=== PATIENT | male | born 1960 | race Caucasian/White ===

== ENCOUNTER 2017-06-07 08:32 | Inpatient (IN) | payer BC ==
[2017-05-22 08:24] VITALS: BMI 44.0
--- NOTE | 2017-05-22 09:21 | PAT Medication Instructions ---
Service Date May 22, 2017. Current Home Medication List Ascorbic Acid (Vitamin C), 1,000 MG PO HS Aspirin (Aspirin), 325 MG PO HS Azelastine HCl (Azelastine HCl), 1 SPRAY SRAVAN BID Chromium Picolinate (Chromium Picolinate), 200 MCG PO QAM Cinnamon (Cinnamon), 1,000 MG PO BID Fish Oil (Orlando-3), 1 CAP PO HS Fluticasone Propionate (Nasal) (Flonase Allergy Relief), 1 SPRAY SRAVAN BID Garlic (Garlic), 1,000 MG PO HS Ginkgo Biloba (Ginkgo Biloba 230 mg), 1 TAB PO QPM Ginseng (Italian Panax Ginseng), 100 MG PO BID Glucosamine-Vitamin D (Glucosamine Plus Vitamin), 1 TABS PO BID Gymnema Sylvestris Haring (Bulk) (Gymnema Sylvestris Haring), 400 MG PO BID Amherst (Amherst Null), 1 CAP PO BID Hydrochlorothiazide (Hctz), 50 MG PO QAM Insulin Glargine (Lantus), 55 SC AMPM Insulin Human Lispro (Humalog Kwikpen), 15 UNITS SQ breakfast Insulin Human Lispro (Humalog Kwikpen), 13 UNITS SQ lunch Insulin Lispro (Human) (Humalog Kwikpen), 19 UNITS SQ supper Insulin Lispro (Human) (Humalog Kwikpen), 1 DOSE SC HS Losartan Potassium (Cozaar), 100 MG PO QAM Lovastatin (Mevacor), 20 MG PO HS Metformin Hcl (Glucophage), 1,000 MG PO BIDM Milk Thistle (Silybum Marianum (Milk Thistle), 500 MG PO QAM Potassium Citrate (Alkalinizer (Potassium Citrate ER), 2 TAB PO TID Prasterone (Dhea) (Dhea), 50 MG PO QPM Vitamin E (Vitamin E), 1 TAB PO BID [dopa macuna], 1 TAB PO QAM [forskelin], 1 TAB PO BID [shelajit], 1 TAB PO HS Medication Instructions For Your Scheduled Surgery - Hold the following medications 2 weeks prior to surgery: Chromium Picolinate (Chromium Picolinate), 200 MCG PO QAM Cinnamon (Cinnamon), 1,000 MG PO BID Fish Oil (Orlando-3), 1 CAP PO HS Vitamin E (Vitamin E), 1 TAB PO BID [dopa macuna], 1 TAB PO QAM [forskelin], 1 TAB PO BID [shelajit], 1 TAB PO HS Amherst (Amherst Null), 1 CAP PO BID Garlic (Garlic), 1,000 MG PO HS Ginkgo Biloba (Ginkgo Biloba 230 mg), 1 TAB PO QPM Ginseng (Italian Panax Ginseng), 100 MG PO BID Glucosamine-Vitamin D (Glucosamine Plus Vitamin), 1 TABS PO BID Gymnema Sylvestris Haring (Bulk) (Gymnema Sylvestris Haring), 400 MG PO BID Milk Thistle (Silybum Marianum (Milk Thistle), 500 MG PO QAM Prasterone (Dhea) (Dhea), 50 MG PO QPM Aspirin (Aspirin), 325 MG PO HS (per surgeon hold for 10 days) - Hold the following medications 48 hours prior to surgery: Metformin Hcl (Glucophage), 1,000 MG PO BID - Hold the following medications the morning of surgery: Hydrochlorothiazide (Hctz), 50 MG PO QAM Ascorbic Acid (Vitamin C), 1,000 MG PO HS Losartan Potassium (Cozaar), 100 MG PO QAM Potassium Citrate (Alkalinizer (Potassium Citrate ER), 2 TAB PO TID Insulin Human Lispro (Humalog Kwikpen), 15 UNITS SQ breakfast Insulin Human Lispro (Humalog Kwikpen), 13 UNITS SQ lunch - Take the following medications the morning of surgery: Fluticasone Propionate (Nasal) (Flonase Allergy Relief), 1 SPRAY SRAVAN BID (if needed) Azelastine HCl (Azelastine HCl), 1 SPRAY SRAVAN BID (if needed) - Take the following medications as scheduled the night before surgery: Lovastatin (Mevacor), 20 MG PO HS Insulin Glargine (Lantus), 55 SC AMPM Insulin Lispro (Human) (Humalog Kwikpen), 19 UNITS SQ supper Insulin Lispro (Human) (Humalog Kwikpen), 1 DOSE SC HS Potassium Citrate (Alkalinizer (Potassium Citrate ER), 2 TAB PO TID Fluticasone Propionate (Nasal) (Flonase Allergy Relief), 1 SPRAY SRAVAN BID (if needed) Azelastine HCl (Azelastine HCl), 1 SPRAY SRAVAN BID (if needed) - For Insulin Dependent Diabetic patients: Test blood sugar A.M. of surgery. - If BLOOD SUGARS GREATER THAN 150, take half of your regular dose of: Insulin Glargine (Lantus), 55 SC AM - If BLOOD SUGAR LESS THAN 150, do not take any: Insulin Glargine (Lantus) , 55 SC AM NOTHING TO EAT OR DRINK AFTER MIDNIGHT THE NIGHT BEFORE SURGERY If you have any questions please call us at [phone] or [phone] or [phone]
--- NOTE | 2017-05-22 09:50 | DIAGNOSTIC IMAGING REPORT ---
CHEST PREADMISSION(PA/LAT) CLINICAL HISTORY: Preoperative chest COMPARISON STUDY: No previous studies for comparison. FINDINGS: The cardiac and mediastinal contours are normal. There is no evidence of focal pulmonary consolidation. There is no evidence of failure. No pleural effusions are visualized.[ IMPRESSION: No active disease in the chest. Electronically signed by: Julian Nunez M.D. 05/22/2017 9:49 AM Dictated Date/Time: 05/22/2017 9:49 AM
[2017-05-22 10:15] LABS: BASO % 0.4 %; BASO ABS # 0.02 K/uL (0-0.2); COMPLETE YES; EOS % 3.4 %; HEMATOCRIT 40.5 % (42-52); IG% 0.4 %; LYMPH % 27.2 %; LYMPH ABS # 1.54 K/uL (1.2-3.4); MEAN CORPUSCULAR HEMOGLOBIN 31.1 pg (25-34); MEAN CORPUSCULAR HGB CONC 33.8 g/dl (32-36); MEAN PLATELET VOLUME 9.8 fL (7.4-10.4); NEUT % 60.6 %; PLATELET COUNT 193 K/uL (130-400); WHITE BLOOD COUNT 5.66 K/uL (4.8-10.8)
[2017-05-22 10:21] LABS: C-REACTIVE PROTEIN 0.54 mg/dl (0-0.29); CALCIUM 9.1 mg/dl (8.5-10.1); CREATININE 0.81 mg/dl (0.60-1.40); POTASSIUM 3.9 mmol/L (3.5-5.1)
[2017-05-22 10:22] LABS: PROTHROMBIN TIME (PATIENT) 10.7 SECONDS (9.0-12.0)
[2017-05-22 10:23] LABS: ESTIMATED AVERAGE GLUCOSE 192 mg/dl; HA1C FLAG Normal (Normal)
--- NOTE | 2017-06-02 22:47 | HISTORY & PHYSICAL EXAMINATION ---
DATE OF ADMISSION: 06/07/2017 CHIEF COMPLAINT: Left knee pain and discomfort. HISTORY OF PRESENT ILLNESS: The patient is a 56-year-old gentleman, now 8 years out from a right knee replacement who presents for surgical treatment of his left knee. He has got a long history of left knee pain and discomfort as well. He has been through extensive conservative treatment over the years including oral medicines and injections. This has become less successful over time. He has got minimal pain relief from the injections. His knee hurts him all the time. The more he walks, the more it hurts and the more he limps. It does give out on him intermittently. He would like to have his left knee replaced. PAST MEDICAL HISTORY: 1. Hypertension. 2. Elevated cholesterol. 3. Sleep apnea. 4. Diabetes x 8-9 years. 5. Gastroesophageal reflux disease. 6. Obesity with a BMI of 44. 7. Kidney stones. PREVIOUS SURGERIES: Include; 1. Right knee replacement in 03/05/2009. 2. Bilateral knee scopes. ALLERGIES: None. CURRENT MEDICINES: 1. Losartan 100 mg once a day. 2. Insulin. 3. Hydrochlorothiazide 25 mg a day. 4. Metformin 1000 mg twice a day. 5. Potassium 10 mEq three times a day. 6. Losartan 20 mg at bedtime. 7. Astelin nasal spray. 8. Flonase nasal spray. 9. Turmeric capsules. 10. Albuterol inhaler p.r.n. 11. Viagra. 12. Cinnamon. 13. Hungarian ginseng. 14. DHEA 50 mg a day. 15. Fish oil. 16. Chromium picolinate 200 mcg a day. 17. Garlic. 18. Unspecified med 19. Milk thistle. 20. Aspirin 325 once a day. 21. Glucosamine. SOCIAL HISTORY: A 56-year-old male. He is a patient of Dr. Finnegan. He does not smoke. He has 6-10 drinks per week. 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 He has 4 children. FAMILY HISTORY: Significant for heart disease, diabetes and lymphoma. REVIEW OF SYSTEMS: Significant for pretty longstanding diabetes which has not been greatly controlled. He has got multiple muscular aches and pains. No history of DVT or PE. No bleeding problems. PHYSICAL EXAMINATION: GENERAL: Reveals a large, middle-aged male. He looks to be in pretty good health. HEENT: Benign. NECK: Supple. No lymphadenopathy. LUNGS: Clear to auscultation. HEART: Has regular rate and rhythm. ABDOMEN: Soft, nontender and nondistended. EXTREMITIES: Grossly neurovascularly intact except as follows: Examination of the left knee reveals the patient walks with bit of a waddling gait. He has got varus alignment to his knee with a bit of a varus thrust. He has got bony hypertrophy medially. His knee is pretty stiff; about 5 degrees short of full extension to about 95 degrees of flexion. No instability. No pain with hip motion. Examination of the right knee reveals a well-healed incision. No swelling. Range of motion is 0-120. X-RAYS: X-rays of the left knee were reviewed. It shows advanced left knee DJD. He has got near complete loss of his medial joint space. He has subchondral sclerosis. He has got osteophytes off the medial femoral condyle and medial tibial plateau. ASSESSMENT: A 56-year-old gentleman, 8 years out from a right knee replacement with advanced left knee degenerative joint disease. He has failed conservative treatment and would like to have his left knee replaced. PLAN: We will take him to the operating room and do a left total knee replacement. The risks and benefits of this procedure were explained to the patient including but not limited to DVT, PE, , infection, neurological injury, vascular injury, bleeding problems, pain, limited range of motion, stiffness, failure to relieve symptoms, incomplete relief of symptoms, need for further surgery in the future, fracture, leg length inequality, nerve palsy pain and need for revision surgery. The patient understands and desires to proceed. Informed consent was obtained. He does know that at his young age, this might need to be revised. 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 We did talk about stopping his supplements 10 days preop and his metformin 2 days preop. He will bring his CPAP machine to the hospital. He is going to be discharged to home and do a likely outpatient therapy. MAMTA
[~2017-06-07] VITALS: Ht 180.3 cm; Wt 138.5 kg
[2017-06-07] VITALS (8 sets, daily range): BP systolic 143–181; BP diastolic 67–105; PULSE 76–89; TEMP 36.3–37.3; O2SAT 94–99; Ht 180.3 cm; Wt 138.5 kg
[~2017-06-07 08:32] MED LIST: ACETAMINOPHEN 500 MG TAB PO SCH; ASCA500 PO; ASPI325T45 PO; AZEL0.056 NAE; BUPIVACAINE 0.25% 30 ML VIAL ONE; BUPIVACAINE 0.5 % 5 MG/1 ML PF 10ML VIAL ONE; BUPIVACAINE LIPOSOME 266 MG, BUPIVACAINE/EPINEPHRINE INJ 50 ML, SODIUM CHLORIDE 0.9% PF... INFIL SCH; CEFAZOLIN 3000 MG/65 ML D5W 65 ML IV SCH; CHRO1TAB5 PO; CINN1CAP2 PO; FAMOTIDINE 20 MG TAB PO SCH; FLUT0.15 NAE; GABAPENTIN 300 MG CAP PO SCH; GARL10007 PO; GINS1CAP PO; GLUCTAB PO; GYMNPOW PO; HAWT565C PO; HMLIS SQ; HYDR50TA3 PO; INSDGI SC; INSU100I2 SC; INSU100I2 SQ; LACTATED RINGER'S 1000ML 1,000 ML IV SCH; LACTATED RINGER'S 1000ML 500 ML IV ONE; LACTATED RINGER'S 1000ML IV SCH; LOSA1TAB38 PO; LOVA20TA4 PO; METF-384 PO; METOCLOPRAMIDE HCL 10 MG TAB PO SCH; MILK1CAP PO; OMEG10007 PO; POTA1080 PO; PRAS50TA PO; SCOPOLAMINE 1.5 MG TDSY TD SCH; TRANEXAMIC ACID INJ 1,000 MG in SODIUM CHLORIDE 0.9% 100ML 100 ML IV SCH; VITA1TAB4 PO; [UNRECOGNIZED DRUG - CODE] PO; [UNRECOGNIZED DRUG - OTHER] PO; [UNRECOGNIZED DRUG - OTHER] PO; [UNRECOGNIZED DRUG - OTHER] PO
--- NOTE | 2017-06-07 09:00 | History & Physical Bridge Note ---
H&P Re-Evaluation Bridge Note: I have examined the patient, reviewed the History & Physical and in the interval since the performance of the History & Physical I have noted the following changes of clinical significance: No changes noted
[2017-06-07] MEDS ORDERED: ONDANSETRON INJ 2 MG/ML 2 ML VIAL ONE (10:08)
[2017-06-07] MEDS ORDERED: LIDOCAINE HCL 2% 2 ML VIAL (20MG/ML) ONE ×2 (10:08→11:35)
[2017-06-07] MEDS ORDERED: PROPOFOL IV EMULSION 10 MG/ML 20 ML VIAL IV ONE (10:08)
[2017-06-07] MEDS ORDERED: DEXAMETHASONE SOD INJ 4 MG/ML VIAL ONE (10:08)
[2017-06-07] MEDS ORDERED: FENTANYL CITRATE INJ 50 MCG/1 ML 2 ML VIAL ONE (10:09)
[2017-06-07] MEDS ORDERED: MIDAZOLAM HCL 1 MG/ML 2ML VIAL ONE ×3 (10:09→12:22)
[2017-06-07] MEDS ORDERED: BACITRACIN 50000 UNIT VIAL ONE (11:14)
[2017-06-07] MEDS ORDERED: BUPIVACAINE LIPOSOME 1/3% 266 MG/20 ML VIAL INFIL ONE (11:14)
[2017-06-07] MEDS ORDERED: SODIUM CHLORIDE 0.9% PF 50 ML VIAL ONE (11:14)
[2017-06-07] MEDS ORDERED: BUPIVACAINE/EPINEPHRINE 0.25% 1:200,000 30 ML VIAL ONE (11:14)
[2017-06-07] MEDS ORDERED: KETOROLAC TROMETHAMINE 30 MG/ML VIAL IV. PRN (11:30)
[2017-06-07] MEDS ORDERED: PHENYLEPHRINE 100MCG/ML 5ML SYR IV PRN (11:30)
[2017-06-07] MEDS ORDERED: EpHEDrine SULFATE INJ 50 MG/ML AMP IV PRN (11:30)
[2017-06-07] MEDS ORDERED: ATROPINE SULFATE 0.1 MG/ML 5ML SYR IV PRN (11:30)
[2017-06-07] MEDS ORDERED: ONDANSETRON INJ 2 MG/ML 2 ML VIAL IV PRN ×2 (11:30→13:30)
[2017-06-07] MEDS ORDERED: HYDROmorphone INJ 2 MG/ML SYR/VIAL IV PRN (11:30)
[2017-06-07] MEDS ORDERED: KETAMINE HCL INJ 50 MG/ML 10 ML VIAL ONE (12:29)
--- NOTE | 2017-06-07 13:21 | [facility] Post Operative Brief Note ---
Immediate Operative Summary Operative Date Jun 07, 2017. Pre-Operative Diagnosis Left Knee Degenerative Joint Disease Post-Operative Diagnosis Same as preop Procedure(s) Performed Left Total Knee Arthroplasty Surgeon Dr. Estrada Arndt Senior Care Specialist Surgeon(s) Yogesh Champion PA-C Estimated Blood Loss 50 ml Findings Left Knee DJD Fluids (cc crystalloids) 2000 Specimens A. Left Knee Bone and Tissue Drains none Anesthesia Spinal Complication(s) None Disposition Recovery Room / PACU
[2017-06-07] MEDS ORDERED: GLUCOSE 40% GEL 15 GM TUBE PO PRN (13:30)
[2017-06-07] MEDS ORDERED: MoRPHine SULFATE 2 MG/ML CARP IV PRN (13:30)
[2017-06-07] MEDS ORDERED: DiphenhydrAMINE HCL 50 MG/ML VIAL IV PRN (13:30)
[2017-06-07] MEDS ORDERED: BISACODYL 10 MG SUPP PR PRN (13:30)
[2017-06-07] MEDS ORDERED: ALUMINUM/MAGNESIUM/SIMETH (MAALOX MAX) 30 ML UDC PO PRN (13:30)
[2017-06-07] MEDS ORDERED: MAGNESIUM HYDROXIDE SUSP 30 ML UDC PO PRN (13:30)
[2017-06-07] MEDS ORDERED: TAMSULOSIN HCL 0.4 MG CAP PO PRN (13:30)
[2017-06-07] MEDS ORDERED: METOCLOPRAMIDE HCL INJ 5 MG/ML 2 ML VIAL IV PRN (13:30)
[2017-06-07] MEDS ORDERED: GLUCOSE 10 TABS/TUBE PO PRN (13:30)
[2017-06-07] MEDS ORDERED: GLUCAGON FOR INJ 1 MG VIAL SQ PRN (13:30)
[2017-06-07] MEDS ORDERED: DEXTROSE 50% 50 ML SYR IV PRN (13:30)
[2017-06-07] MEDS ORDERED: SILVER SULFADIAZINE 1% CR 50 GM JAR EXT PRN (13:30)
[2017-06-07] MEDS ORDERED: ZOLPIDEM TARTRATE 5 MG TAB PO PRN (13:30)
--- NOTE | 2017-06-07 13:57 | DIAGNOSTIC IMAGING REPORT ---
L KNEE 1 OR 2 VIEWS ROUTINE CLINICAL HISTORY: AP/LATERAL IN PACU LEFT KNEE joint replacement COMPARISON: None. DISCUSSION: Evidence for total left knee arthroplasty. Good contact between prosthetic and underlying bone. Expected surgical change to the soft tissue. IMPRESSION: Anatomic alignment status post total left knee arthroplasty. The above report was generated using voice recognition software. It may contain grammatical, syntax or spelling errors. Electronically signed by: Harjeet Diana M.D. 06/07/2017 1:56 PM Dictated Date/Time: 06/07/2017 1:55 PM
--- NOTE | 2017-06-07 14:43 | Anesthesiology Progress Note ---
Anesthesia Post Op Note Date & Time Jun 07, 2017 at 14:43 Vital Signs Pain Intensity: 0 Vital Signs Past 12 Hours Date Time Temp Pulse Resp B/P (MAP) Pulse Ox O2 Delivery O2 Flow Rate FiO2 06/07/17 14:35 77 16 135/71 99 Nasal Cannula 2 06/07/17 14:25 77 16 134/79 99 Nasal Cannula 2 06/07/17 14:15 36.3 70 16 138/80 99 Nasal Cannula 2 06/07/17 14:05 70 16 122/75 96 Nasal Cannula 2 06/07/17 13:55 70 16 132/74 96 Nasal Cannula 2 06/07/17 13:45 68 16 146/76 96 Nasal Cannula 2 06/07/17 13:35 68 16 152/76 98 Nasal Cannula 2 06/07/17 13:25 36.2 76 16 138/74 96 Nasal Cannula 2 06/07/17 08:55 36.8 81 20 181/105 96 Room Air Notes Mental Status: alert / awake / arousable, participated in evaluation Pt Amnestic to Procedure: Yes Nausea / Vomiting: adequately controlled Pain: adequately controlled Airway Patency, RR, SpO2: stable & adequate BP & HR: stable & adequate Hydration State: stable & adequate Anesthetic Complications: no major complications apparent
[2017-06-07] MEDS ORDERED: PHARMACY GLYCEMIC MGMT CONSULT PRN (15:30)
--- NOTE | 2017-06-07 15:59 | Pharmacy Progress Note ---
Glycemic Control Intl Consult Date of Service Jun 07, 2017. Scope Glycemic Pharmacist consulted by Dr Arndt on 06/07/17 for glycemic control and to write orders per [facility] inpatient glycemic control protocol Objective Weight (Kilograms): 138.5 Accuchecks BSG (last 24hrs): Test 06/07/17 09:04 06/07/17 13:35 Bedside Glucose 207 mg/dl (70-99) 136 mg/dl (70-99) HbA1c Test 05/22/17 09:16 Hemoglobin A1c 8.3 % (4.5-5.6) H Recent Pertinent Medications Outpatient Anti-diabetic Regimen: * Lantus 55 units SQ BID * NovoLog 15, 13, 19 units with breakfast, lunch, dinner respectively Risk Factors for Insulin Resistance: * Steroids: DXM 4mg IV x 1 intraop * Recent Surgery * Diet Assessment & Plan ASSESSMENT: * 56yo T2DM male with subadequate degree of outpatient control per recent A1c. Goal A1c < 7% * Pt is maintained on high dose SQ basal bolus insulin regimen as an outpatient (157 units/day) * Basal insulin dosing is 110 units & prandial insulin is 47 units of daily regimen * Outpatient regimen is heavily weighted towards basal insulin which puts him at risk of hypoglycemia when PO intake changes. Pt likely to have decreased PO intake in house as compared to outpatient based on body weight. * Pt with multiple risk factors for insulin resistance and pt missed/skipped AM dose of Lantus prior to surgery. * Will give outpatient dose of Lantus tonight and then start reduced basal insulin dose tomorrow. Will titrate based on BSG trends to maintain BSG < 150mg/ dl. * ADA & AACE recommend a goal blood sugar range 140-180 mg/dl for the majority of critically ill & non-critically ill patients. However, more stringent targets may be selected in individual cases. Will utilize more stringent goal of 110-140mg/dl based on patient age & comorbidities. Additionally, tighter glycemic control is warranted to facilitate wound/infection healing. PLAN FOR INPATIENT GLYCEMIC CONTROL: change regimen to 50:50% distribution of basal:prandial insulin based off of an estimated total daily dose of ~ 150 units /day * Holding outpatient oral diabetes medications * Basal insulin * Lantus 55 units SQ x q 1 dose tonight to make up missed dose this AM, then, * Lantus 40 units SQ BID * Bolus insulin * NovoLog per scale ACHS or Q6hrs while NPO. Additional checks + coverage at 0000 & 0400 * Goal Range: Low 110 mg/dL - High 140 mg/dL * Correction Factor: 10 mg/dL/unit * Nutritional / Prandial insulin per carb ratio of 1 unit per 4 grams CHO consumed * Please note that the plan above was derived based on current level of insulin resistance and hospital stress. These recommendations are appropriate for inpatient admission only. Plan of care upon discharge will need to be reassessed to avoid potential outpatient hypo/hyperglycemia. Thank you.
[2017-06-07] MEDS: CHECK SCOPOLAMINE PATCH PLACEMENT SCH (16:00)
[2017-06-07] MEDS ORDERED: INFLUENZA ADMINISTRATION CHARGE ONE (16:30)
[2017-06-07] MEDS ORDERED: INFLUENZA VIRUS QUAD VACCINE 0.5 ML SYR IM. ONE (16:30)
[2017-06-07] MEDS ORDERED: INSULIN GLARGINE SOLOSTAR 100 UNITS/ML 3 ML PEN SC ONE (17:00)
[2017-06-07] MEDS: SODIUM CHLORIDE 0.9% 1000ML 1,000 ML IV SCH ×2 (17:07→21:37)
[2017-06-07] MEDS: KETOROLAC TROMETHAMINE 30 MG/ML VIAL IV. SCH ×2 (17:09→21:43)
[2017-06-07] MEDS: INSULIN ASPART 100 UNITS/ML 3 ML PEN SC SCH ×2 (17:14→21:00)
[2017-06-07] MEDS: FERROUS GLUCONATE 324 MG TAB PO SCH (17:20)
[2017-06-07] MEDS: POTASSIUM CITRATE 10 MEQ TAB PO SCH (17:20)
[2017-06-07] MEDS: OXYCODONE HCL IR 5 MG TAB (IMMEDIATE RELEASE) PO PRN (18:24)
--- NOTE | 2017-06-07 18:33 | PROGRESS NOTE ---
DATE: 06/07/2017 SUBJECTIVE: A 56-year-old gentleman postop from a left knee replacement. He is doing pretty well. He does not have any feeling in his legs yet. No chest pain or shortness of breath. Not feeling dizzy or lightheaded. OBJECTIVE: VITAL SIGNS: Temperature 37.2. Vital signs stable. PHYSICAL EXAMINATION: GENERAL: Reveals a healthy, pleasant, middle-aged male. He is sitting up in bed and looks comfortable. LUNGS: Clear to auscultation. HEART: Regular rate and rhythm. ABDOMEN: Soft, nontender, nondistended. EXTREMITIES: Grossly neurovascularly intact except as follows: Examination of left lower extremity reveals the leg to be well aligned. Dressing is clean, dry, and intact. He has no significant sensory or motor function yet. He has got a good distal pulse and brisk refill to his toes. X-RAYS: X-rays of the left knee from the recovery room were reviewed. It shows a cemented posterior stabilized total knee arthroplasty. Fairly poor quality films as they are quite rotated. No signs of apparent problems. ASSESSMENT: This is a 56-year-old gentleman postop from a left knee replacement, doing well. The spinal is still in effect. PLAN: 1. DVT prophylaxis including thigh-high TEDs, SCDs, and aspirin twice a day. 2. PT/OT. Weight bear as tolerated. Left total knee protocol. 3. Pain control, doing well with current pain management. His spinal is still in effect, so he is having no pain. We will have to titrate meds as needed to manage his pain as the block wears off. 4. IV antibiotics x24 hours. 5. Disposition: He is planning to be discharged home and do outpatient therapy locally. MAMTA
--- NOTE | 2017-06-07 19:10 | OPERATIVE REPORT ---
DATE OF OPERATION: 06/07/2017 SURGEON: Dr. Estrada Arndt. DITCHING MACHINE OPERATOR: CHEYANNE Schreiber PREOPERATIVE DIAGNOSIS: Left knee degenerative joint disease. POSTOPERATIVE DIAGNOSIS: Same. PROCEDURE PERFORMED: Left cemented posterior stabilized total knee arthroplasty. COMPLICATIONS: None. ESTIMATED BLOOD LOSS: 50 mL. FLUID REPLACEMENT: 2000 mL crystalloid fluid replacement. TOURNIQUET TIME: 65 minutes at 300 mmHg. ANESTHESIA: Spinal with adductor canal block. DRAINS: None. SPECIMENS: Left knee sent for pathology. 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 He underwent a right knee replacement about 10 years or so ago and done well from this. Over the past several years, he has developed increased pain and discomfort in his left knee. He failed all conservative care. It was really become debilitating difficulty doing his job. He elected to proceed with left total knee arthroplasty. OPERATIVE FINDINGS: Operative findings revealed advanced left knee DJD. He had grade 4 [id number] disease primarily in the medial compartment, but also focally in all 3 compartments. He had posterior osteophytes. He had a varus deformity to his knee. Large knee joint effusion. OPERATIVE IMPLANTS: Operative implants consisted of: 1. Biomet Vanguard size 75 left posterior stabilized femoral component. 2. Biomet size 79 tibial tray. 3. A 12-mm posterior stabilized polyethylene insert. 4. A 34 x 8.5 all poly patella. OPERATIVE PROCEDURE: The patient was taken to the operating room, identified and placed on the operative table in the supine position. All contact areas were appropriately padded. IV antibiotics were provided by anesthesia team. A spinal anesthetic and adductor canal block were provided in the holding area. Ying catheter was placed in sterile fashion. A left thigh tourniquet was then placed and left lower extremity was then prepped and draped in the usual sterile fashion. The left leg was elevated and exsanguinated with Esmarch and tourniquet was placed at 300 mmHg. An anterior approach to the left knee was then performed through a longitudinal incision centered over the patella. Sharp dissection was carried out through the subcutaneous tissues down to the level of the extensor mechanism. A medial parapatellar arthrotomy incision was made. Some subperiosteal dissection was carried out medially. The fat pad was resected from beneath the patellar tendon. The lateral patellofemoral ligament was released. The patella was everted and the knee was flexed. The osteophytes were taken off the distal femur. The ACL and PCL were then released from the distal femur and the tibia subluxated anteriorly. The external tibial alignment jig was then placed in the anterior face of the tibia and adjusted 16 mm medially. Proximal tibial cut was made to remove about 2-3 mm of bone from the most deficient aspect of the medial tibial plateau. I did take a fairly significant piece of bone off because he did not have a lot of wear on the tibia and he had a slight flexion contracture. The tibia was then sized to a size 79. Attention was then drawn to the femur. The distal femur was entered with a sharp drill bit. Intramedullary canal was suctioned. A left 6-degree valgus cutting guide was placed. Distal femoral cutting block was pinned in place. Distal femoral cut was made to take an additional 3 mm of bone off the distal femur. The femur was then sized to a size 75. We did downsize this slightly. The AP cutting block was pinned parallel to the epicondylar axis, which was 5 degrees of external rotation. The anterior cut, anterior chamfer, posterior cut, and posterior chamfer cuts were made. Box cutting guide was placed and adjusted slightly lateral and the box cut was made. The knee were flexed. The remnants of the medial and lateral menisci were excised. The osteophytes were taken off the posterior aspect of the femur. Trial femoral component was placed. Tibial tray was pinned in maximum external rotation and drill and stem punch were used to create defect in proximal tibia for the tibial tray. The knee was then trialed and the 12-mm insert fit most appropriately. Attention was then drawn to the patella. The patella was cleaned of all soft tissues. Patella was quite thick, measured about 26-27 mm in thickness and it was cut down for 14. Lug holes were drilled for a 34 patella. Lateral osteophyte was removed. Patella button was placed. Knee was taken through range of motion. Patella tracked with no thumbs test, but did so some. Once the tourniquet was down, the patella tracked fairly normally without any tilt. We elected to use these components. All trial components were removed. Bone plug was placed in the distal femur to limit blood loss. A double batch of Palacos G cement was mixed. A left size 75 posterior stabilized femoral component, size 79 tibial tray, a 12-mm posterior stabilized polyethylene insert, and a 34 x 8.5 all poly patella were then cemented in place. Knee was brought out into full extension until cement hardened. A final cement check was then performed. Pericapsular tissues were injected with 100 mL of a combination of 20 mL of Exparel, 30 mL of normal saline, and 50 mL of 0.25% Marcaine with epinephrine. The patient did receive 1 gram of tranexamic acid. The tourniquet was then let down for a final tourniquet time of 65 minutes. Hemostasis was assured with the use of electrocautery. The wound was once again irrigated. The extensor mechanism was then closed with a combination of #1 PDS suture and #1 Vicryl suture in a [id number] fashion. Extensor mechanism was checked and found to be intact. The subcutaneous tissues were then closed with 2-0 Dexon suture in a buried interrupted fashion. Skin was closed skin julian. Leg was then cleaned and dried and a sterile dressing of Xeroform, 4 x 4, sterile cast padding and Edu bandage were applied. The patient then transferred to the recovery room in stable condition. The patient tolerated the procedure well with no complications. All needle and sponge counts were correct at the end of the operation. I attest to the content of the Intraoperative Record and any orders documented therein. Any exception s are noted below.
[2017-06-07] MEDS ORDERED: TRANEXAMIC ACID INJ 1,000 MG in SODIUM CHLORIDE 0.9% 100ML 100 ML IV SCH (19:30)
[2017-06-07] MEDS: FLUTICASONE PROPIONATE NA SPR 16 GM BTL NAE SCH (20:36)
[2017-06-07] MEDS: SENNA 8.6 MG TAB PO SCH (20:37)
[2017-06-07] MEDS: LOVASTATIN 20 MG TAB PO SCH (20:37)
[2017-06-07] MEDS: ASPIRIN 325 MG ECTAB PO SCH (20:37)
[2017-06-07] MEDS: DOCUSATE SODIUM 100 MG CAP PO SCH (20:38)
[2017-06-07] MEDS: ASCORBIC ACID 500 MG TAB PO SCH (20:38)
[2017-06-07] MEDS: TOCOPHERYL, DL-ALPHA 400 INTER.UNIT CAP PO SCH (20:38)
[2017-06-07] MEDS ORDERED: PRASTERONE 50 MG PO SCH (21:00)
[2017-06-07] MEDS: CEFAZOLIN IV 2,000 MG in DEXTROSE 5% 50ML 50 ML IV SCH (21:37)
[2017-06-07] MEDS: TAPENTADOL ER 50 MG TABCR PO SCH (21:41)
[2017-06-07] MEDS: ACETAMINOPHEN 500 MG TAB PO SCH (21:42)
[2017-06-08] VITALS (9 sets, daily range): BP systolic 134–185; BP diastolic 70–98; PULSE 74–98; TEMP 36.8–37.8; O2SAT 94–97
[2017-06-08] MEDS: CHECK SCOPOLAMINE PATCH PLACEMENT SCH ×5 (00:05→23:59)
[2017-06-08] MEDS: INSULIN ASPART 100 UNITS/ML 3 ML PEN SC SCH ×6 (04:00→21:45)
[2017-06-08] MEDS: CEFAZOLIN IV 2,000 MG in DEXTROSE 5% 50ML 50 ML IV SCH (04:00)
[2017-06-08] MEDS: SODIUM CHLORIDE 0.9% 1000ML 1,000 ML IV SCH ×2 (04:00→09:21)
[2017-06-08] MEDS: KETOROLAC TROMETHAMINE 30 MG/ML VIAL IV. SCH ×4 (04:02→21:58)
[2017-06-08 06:03] LABS: HEMATOCRIT 36.1 % (42-52); MEAN CORPUSCULAR HEMOGLOBIN 30.7 pg (25-34); MEAN PLATELET VOLUME 9.4 fL (7.4-10.4); PLATELET COUNT 171 K/uL (130-400); RED BLOOD COUNT 3.88 M/uL (4.7-6.1); WHITE BLOOD COUNT 7.15 K/uL (4.8-10.8)
[2017-06-08] MEDS: ACETAMINOPHEN 500 MG TAB PO SCH ×4 (06:08→21:50)
[2017-06-08 07:23] LABS: CREATININE 0.85 mg/dl (0.60-1.40); POTASSIUM 3.8 mmol/L (3.5-5.1)
--- NOTE | 2017-06-08 07:42 | PROGRESS NOTE ---
DATE: 06/08/2017 SUBJECTIVE: 56-year-old gentleman postop day 1 from a left knee replacement. He is doing pretty well. Pain is controlled. Denies any chest pain or shortness of breath. Not feeling dizzy or lightheaded. OBJECTIVE: VITAL SIGNS: Temperature 37.0. Vital signs stable. PHYSICAL EXAMINATION: GENERAL: Reveals a pleasant, middle-aged male. He is lying in bed, looks pretty comfortable. EXTREMITIES: Examination of the left leg reveals the dressing to be in place. There is a little bit of bloody drainage on the front; it has been reenforced. Leg is well aligned. He can dorsiflex and plantarflex his foot appropriately. He is neurologically intact. LABORATORY DATA: Hemoglobin 11.9, hematocrit 36.1. Electrolytes are stable. ASSESSMENT: 56-year-old gentleman postop day 1 from a left knee replacement, doing pretty well. Pain is controlled. He is neurologically intact. PLAN: 1. DVT prophylaxis including thigh-high TEDs, SCDs, and aspirin twice a day. 2. PT/OT. Weightbearing as tolerated. Left total knee protocol. 3. Pain control, doing pretty well with current pain regimen. 4. Disposition: He is planning to be discharged to home and he is going to do outpatient therapy once medically recovered.
[2017-06-08] MEDS: OXYCODONE HCL IR 5 MG TAB (IMMEDIATE RELEASE) PO PRN ×3 (08:07→21:50)
--- NOTE | 2017-06-08 08:28 | Anesthesiology Progress Note ---
Anesthesia Post Op Note Date & Time Jun 08, 2017 at 08:27 Vital Signs Pain Intensity: 4.0 Vital Signs Past 12 Hours Date Time Temp Pulse Resp B/P (MAP) Pulse Ox O2 Delivery O2 Flow Rate FiO2 06/08/17 07:55 36.8 74 18 185/98 (127) 94 Room Air 06/08/17 07:15 Room Air 06/08/17 04:00 37.0 75 17 134/75 (94) 97 CPAP 06/08/17 00:05 Room Air 06/07/17 23:01 37.3 89 16 143/77 (99) 94 Room Air 06/07/17 21:45 87 164/90 (114) Notes Mental Status: alert / awake / arousable, participated in evaluation Pt Amnestic to Procedure: Yes Nausea / Vomiting: adequately controlled Pain: adequately controlled Airway Patency, RR, SpO2: stable & adequate BP & HR: stable & adequate Hydration State: stable & adequate Neuraxial Anesthesia: was administered, sensory block resolved Anesthetic Complications: no major complications apparent
[2017-06-08] MEDS: DOCUSATE SODIUM 100 MG CAP PO SCH ×2 (08:50→21:48)
[2017-06-08] MEDS: PANTOprazole SOD 40 MG TAB PO SCH (08:50)
[2017-06-08] MEDS: MULTIVITAMIN TAB PO SCH (08:51)
[2017-06-08] MEDS: LOSARTAN POTASSIUM 50 MG TAB PO SCH (08:51)
[2017-06-08] MEDS: ASPIRIN 325 MG ECTAB PO SCH ×2 (08:51→21:48)
[2017-06-08] MEDS: FERROUS GLUCONATE 324 MG TAB PO SCH ×3 (08:51→17:38)
[2017-06-08] MEDS: POTASSIUM CITRATE 10 MEQ TAB PO SCH ×3 (08:52→17:38)
[2017-06-08] MEDS: FLUTICASONE PROPIONATE NA SPR 16 GM BTL NAE SCH ×2 (08:52→21:48)
[2017-06-08] MEDS: HYDROCHLOROTHIAZIDE 50 MG TAB PO SCH ×2 (08:53→12:12)
[2017-06-08] MEDS: TAPENTADOL ER 50 MG TABCR PO SCH ×2 (08:58→21:49)
[2017-06-08] MEDS ORDERED: NON-FORMULARY MEDICATION (Chromium Picolinate 200 MCG) PO SCH (09:00)
[2017-06-08] MEDS: INSULIN GLARGINE SOLOSTAR 100 UNITS/ML 3 ML PEN SC SCH ×2 (09:07→21:47)
[2017-06-08] MEDS: TOCOPHERYL, DL-ALPHA 400 INTER.UNIT CAP PO SCH ×2 (09:23→21:49)
--- NOTE | 2017-06-08 09:31 | Pharmacy Progress Note ---
Glycemic Control Progress Note Date of Service Jun 08, 2017. Scope Glycemic Pharmacist consulted for glycemic control to write orders per [facility] inpatient glycemic control protocol. Objective Accuchecks BSG (last 24hrs): Test 06/07/17 13:35 06/07/17 15:49 06/07/17 20:53 06/07/17 23:59 Bedside Glucose 136 mg/dl (70-99) 113 mg/dl (70-99) 116 mg/dl (70-99) 111 mg/dl (70-99) Test 06/08/17 03:58 06/08/17 05:41 06/08/17 07:58 Bedside Glucose 103 mg/dl (70-99) 112 mg/dl (70-99) Random Glucose 108 mg/dl (70-99) HbA1c: Test 05/22/17 09:16 Hemoglobin A1c 8.3 % (4.5-5.6) H Recent Pertinent Medications The patient is currently receiving: * Basal insulin: Lantus 55 units every x 1 dose at dinnertime then Lantus 40 units SQ twice daily * Correctional Insulin: Novolog Correction per scale ACHS Goal Range: Low 110 mg/dL - High 140 mg/dL Correction Factor: 10 mg/dL/unit * Prandial insulin: Per carb ratio of 1 unit per 4 grams CHO consumed Outpatient Anti-Diabetic Meds metformin 1 gm PO BID Lantus 55 units twice daily Humalog 15 units with breakfast, 13 units with lunch, and 19 units with dinner Assessment & Plan ASSESSMENT: * See progress note from 06/07/17 for more background info, in short: * Pt receiving SQ basal bolus insulin regimen for hyperglycemia secondary to baseline DM (outpatient regimen on hold), POD 1 for TKA, and received dexamethasone 4 mg IV intraoperatively * Patient is currently receiving an average of 65 units of insulin per day * 55 units of basal insulin * 10 units of prandial/correctional insulin * BSGs ranging 111 - 207 mg/dl over the past 24hrs * Changes needed to insulin regimen: * AM Fasting BSG = 112 mg/dl. This is within goal range for patient based on inpatient targets and co-morbidities. Levemir 40 units is a slightly reduced dose from home regimen of 55 units twice daily - it reflects a total daily dose of 150 units/day which is reasonable considering patient's home dose. Continue current regimen. * Post-prandial BSGs are in range therefore no changes needed to CF/CR. As effects of dexamethasone diminish, the CF/CR may require loosening. * Total daily dose = ~150 units. Current regimen providing adequate post- surgery blood sugars. continue regimen. * Additional notes / comments: restart metformin tomorrow as adequate kidney function and oral intake has been established. PLAN FOR INPATIENT GLYCEMIC CONTROL: * Continuing Lantus 40 units SQ BID * Continuing correction factor of 10 mg/dl/unit * TIGHTEN carb ratio to 1 unit per 3 grams CHO consumed * Continuing goal range to Low 110 mg/dL - High 140 mg/dL RECOMMENDATIONS FOR DISCHARGE: * Goal HbA1C around 6.5% .... recommend patient work with physician to tighten blood sugar control as an outpatient. Emphasize dietary recommendations and adherence to diabetes regimen. Thank you.
[2017-06-08] MEDS ORDERED: RXC5 PO (20:50)
[2017-06-08] MEDS ORDERED: MORP-157 PO (20:50)
[2017-06-08] MEDS ORDERED: ASPEC325 PO (20:50)
[2017-06-08] MEDS ORDERED: ACET-24 PO (20:50)
--- NOTE | 2017-06-08 20:52 | Discharge Instructions ---
Discharge Instructions Date of Service Jun 08, 2017. Admission Reason for Admission: Left Knee Degenerative Joint Disease Discharge Discharge Diagnosis / Problem: Left Knee Replacement Discharge Goals Goal(s): Decrease discomfort, Improve function, Increase independence, Improve disease control, Therapeutic intervention Activity Recommendations Activity Limitations: per Instructions/Follow-up section Weightbearing Status: Left weightbearing . Instructions / Follow-Up Instructions / Follow-Up ACTIVITY RECOMMENDATIONS: Physical Therapy: * You will go to physical therapy three times each week for four to six weeks after your surgery in order to regain your knee range of motion and to retrain your knee to work properly. * It is just as important to make sure you are getting your knee perfectly straight as it is to regain your knee bend. * Taking a pain pill an hour before therapy can help you have a more productive and comfortable therapy session. Home Exercise: * You were shown a series of exercises (heel props, heel slides, etc.) in the hospital. Do these exercises three to four times each day including the exercises you were shown in physical therapy. Walking: * Get up and walk several times each day. For the first four weeks, try not to stand or walk for more than one hour at a time. If you do stand or walk for more than one hour, you will not hurt anything, but your knee and leg will likely swell. * As you feel comfortable, you may change from the walker or crutches to a cane and then to independent walking. MEDICATIONS: New Medicine: * You will likely be taking one or more of these medications: 1. MS Contin - A long-acting pain medication. Take 1 tablet twice a day for the first ten days to decrease your baseline level of pain. 2. Oxycodone - A quick and shorter-acting pain medication. Take one to two tablets every four to six hours to lessen your pain. 3. Aspirin - Thins your blood to lessen the chance of forming a blood clot. * The most common side effects of pain medicine and iron are nausea and constipation. If nausea or constipation is too much of a problem or if you have any questions about your new medicines or doses, call [facility] at [phone]. We will try to help you manage these issues. VERY IMPORTANT TO READ AND REVIEW" Pain: * The immediate post-operative period after knee replacement surgery is often quite painful. * You are given a prescription for pain medicine. You should take it, as directed, when you need it, especially before physical therapy and before going to bed. Pain that interferes with sleep is very common and can last several months. * You will likely need pain medicine for the first four to six weeks. It will not stop all of the pain. The pain will lessen and as you feel better, you may change to milder pain medicine such as Tylenol. * The most common side effects of pain medicine are nausea and constipation, so don't take more than you need. SPECIAL CARE INSTRUCTIONS: TEDs/Elastic Stockings: * The white elastic stockings help limit swelling and prevent blood clots from forming in your legs. The more you wear them, the more they work. * Wear them for six weeks after knee replacement surgery and four weeks after partial knee replacement. Prevention of Infection: * Take antibiotics one hour before any dental cleaning, dental work, urological procedure, gastrointestinal procedure or any invasive surgery in order to prevent your new joint from getting infected. * You may get the antibiotics from the doctor performing the procedure or you may call our office at before and we will call in a prescription to the pharmacy of your choice. Things to Watch For: * Drainage from the incision site that occurs more than one week after your surgery. * Severely increased knee/leg pain or swelling. * Increased redness at the incision site. * Fever above 102 degrees Fahrenheit. * Unusual chest pain or shortness of breath. * Unusual pain or burning with urination. Call [facility] at with any of the above problems or if you have any questions about your medicines or recovery. FOLLOW UP VISIT: Make an appointment to see your doctor for approximately two weeks after surgery for a progress check and staple removal by calling the office at . Current Hospital Diet Patient's current hospital diet: Diabetes Type 2 Diet Discharge Diet Recommended Diet: Diabetes Type 2 Diet Procedures Procedures Performed: Left Total Knee Arthroplasty Pending Studies Studies pending at discharge: no Laboratory Results Hemoglobin A1c Test 05/22/17 09:16 Range/Units Estimated Average Glucose 192 mg/dl Hemoglobin A1c 8.3 H 4.5-5.6 % Medical Emergencies . Who to Call and When: Medical Emergencies: If at any time you feel your situation is an emergency, please call [phone] immediately. . Non-Emergent Contact Non-Emergency issues call your: Surgeon . "Provider Documentation" section prepared by Estrada Arndt. . VTE Core Measure Inpt VTE Proph given/why not?: Other Anticoagulation, T.E.D. Stockings, SCD's
[2017-06-08] MEDS: AZELASTINE HCL 0.1 % NASAL SPRAY SCH (21:47)
[2017-06-08] MEDS: LOVASTATIN 20 MG TAB PO SCH (21:48)
[2017-06-08] MEDS: SENNA 8.6 MG TAB PO SCH (21:49)
[2017-06-08] MEDS: ASCORBIC ACID 500 MG TAB PO SCH (21:49)
[2017-06-09] MEDS: INSULIN ASPART 100 UNITS/ML 3 ML PEN SC SCH ×4 (00:06→12:50)
[2017-06-09] MEDS: KETOROLAC TROMETHAMINE 30 MG/ML VIAL IV. SCH ×2 (03:51→10:22)
[2017-06-09] MEDS: ACETAMINOPHEN 500 MG TAB PO SCH ×2 (05:44→12:55)
[2017-06-09] MEDS: OXYCODONE HCL IR 5 MG TAB (IMMEDIATE RELEASE) PO PRN ×2 (05:45→10:22)
[2017-06-09 06:17] VITALS: BP 144/70; PULSE 85; TEMP 37; O2SAT 98
[2017-06-09] MEDS: CHECK SCOPOLAMINE PATCH PLACEMENT SCH (08:00)
[2017-06-09] MEDS ORDERED: METFORMIN HCL 500 MG TAB PO SCH (08:30)
--- NOTE | 2017-06-09 08:37 | PROGRESS NOTE ---
DATE: 06/09/2017 DATE: 06/09/2017 SUBJECTIVE: A 56-year-old gentleman postop day 2 from a left knee replacement. He is doing pretty well. Pain seems much better than his previous knee surgery. His leg is working better. He can do a straight leg raise. Therapy has gone well. No chest pain or shortness of breath. Not feeling dizzy or lightheaded. OBJECTIVE: VITAL SIGNS: Temperature 37.0. Vital signs stable. PHYSICAL EXAMINATION: GENERAL: Reveals a healthy, pleasant, middle-aged male. He is sitting up in bed, looks pretty comfortable. EXTREMITIES: Examination of the left leg reveals the dressing to be in place. A little bit of bloody drainage at the inferior aspect of his incision site. Not much in the way of swelling. He can dorsiflex and plantarflex his foot appropriately. He can do a good straight leg raise. NEUROLOGIC: He is neurologically intact. ASSESSMENT: A 56-year-old gentleman postop day 2 from a left knee replacement, doing well. Pain is controlled. PLAN: 1. DVT prophylaxis including thigh-high TEDs, SCDs, and aspirin twice a day. 2. PT/OT. Weightbearing as tolerated. Left total knee protocol. 3. Pain control. Doing pretty well with current pain regimen. 4. Disposition. Plan to discharge to home. He is going to do outpatient therapy.
[2017-06-09] MEDS: INSULIN GLARGINE SOLOSTAR 100 UNITS/ML 3 ML PEN SC SCH (08:55)
[2017-06-09] MEDS: FERROUS GLUCONATE 324 MG TAB PO SCH ×2 (08:58→12:53)
[2017-06-09] MEDS: PANTOprazole SOD 40 MG TAB PO SCH (09:00)
[2017-06-09] MEDS: POTASSIUM CITRATE 10 MEQ TAB PO SCH ×2 (09:00→12:53)
[2017-06-09] MEDS: AZELASTINE HCL 0.1 % NASAL SPRAY SCH (09:01)
[2017-06-09] MEDS: FLUTICASONE PROPIONATE NA SPR 16 GM BTL NAE SCH (09:01)
[2017-06-09] MEDS: LOSARTAN POTASSIUM 50 MG TAB PO SCH (09:02)
[2017-06-09] MEDS: MULTIVITAMIN TAB PO SCH (09:02)
[2017-06-09] MEDS: HYDROCHLOROTHIAZIDE 50 MG TAB PO SCH (09:03)
[2017-06-09] MEDS: TAPENTADOL ER 50 MG TABCR PO SCH (09:19)
[2017-06-09] MEDS: TOCOPHERYL, DL-ALPHA 400 INTER.UNIT CAP PO SCH (09:20)
[2017-06-09] MEDS: DOCUSATE SODIUM 100 MG CAP PO SCH (09:20)
[2017-06-09] MEDS: ASPIRIN 325 MG ECTAB PO SCH (09:20)
--- NOTE | 2017-06-09 10:50 | Pharmacy Progress Note ---
Glycemic Control Progress Note Date of Service Jun 09, 2017. Scope Glycemic Pharmacist consulted for glycemic control to write orders per [facility] inpatient glycemic control protocol. Objective Accuchecks BSG (last 24hrs): Test 06/08/17 12:04 06/08/17 17:07 06/08/17 20:42 06/09/17 00:03 Bedside Glucose 242 mg/dl (70-99) 184 mg/dl (70-99) 166 mg/dl (70-99) 247 mg/dl (70-99) Test 06/09/17 03:45 06/09/17 06:49 Bedside Glucose 237 mg/dl (70-99) 161 mg/dl (70-99) HbA1c: Test 05/22/17 09:16 Hemoglobin A1c 8.3 % (4.5-5.6) H Recent Pertinent Medications The patient is currently receiving: * Basal insulin: Lantus 40 units every 12 hours * Correctional Insulin: Novolog Correction per scale ACHS Goal Range: Low 110 mg/dL - High 140 mg/dL Correction Factor: 10 mg/dL/unit * Prandial insulin: Per carb ratio of 1 unit per 3 grams CHO consumed * Oral Agents: Metformin 1gm PO BID Outpatient Anti-Diabetic Meds metformin 1 gm PO BID Lantus 55 units twice daily Humalog 15 units with breakfast, 13 units with lunch, and 19 units with dinner Assessment & Plan ASSESSMENT: \\06/09/17 * BSGs fairly well controlled over the last 24 hours, however a few episodes of hyperglycemia noted after lunch and again at midnight. The pre-lunch hyperglycemia was felt to be due to inadequate prandial insulin and as a result the carb ratio was adjusted to provide more w/ meals. The midnight BSG elevation is odd and not easily explained as the 2100 BSG as 166 yet midnight BSG was 247. Perhaps the patient had been snacking? * Fasting BSG 161 this AM w/ 80 units of basal insulin on board. This is a little above goal but acceptable. Will begin titrating the basal insulin dose upwards a little as most BSGs running above 160 at this time. PLAN FOR INPATIENT GLYCEMIC CONTROL: * Increasing Lantus to 45 units SQ BID (give 10 additional units w/ lunch today to "catch-up" * Continuing correction factor to 10 mg/dl/unit * Continuing carb ratio of 1 unit per 3 grams CHO consumed * Continuing goal range of Low 110 mg/dL - High 140 mg/dL * Check BSG at 0200 tonight and cover w/ Novolog as above if elevated * Please note that the plan above was derived based on current level of insulin resistance and hospital stress. These recommendations are appropriate for inpatient admission only. Plan of care upon discharge will need to be reassessed to avoid potential outpatient hypo/hyperglycemia. Thank you.
[2017-06-09 10:57] VITALS: BP 144/70; PULSE 85; TEMP 37; O2SAT 98
[2017-06-09] MEDS ORDERED: INSULIN GLARGINE SOLOSTAR 100 UNITS/ML 3 ML PEN SC ONE (12:00)
[2017-06-09] MEDS ORDERED: INSULIN GLARGINE SOLOSTAR 100 UNITS/ML 3 ML PEN SC SCH (21:00)
[2017-06-10] MEDS ORDERED: INSULIN ASPART 100 UNITS/ML 3 ML PEN SC ONE (02:00)
== END 2017-06-09 14:49 | disposition home or self-care (01) | DRG 470 ==
LOC: C.ACU 08:32 → C.3E 13:26 → ENRESERV 15:08
PROVIDERS: ADMIT Orthopaedic Surgery Sports Medicine; ATTEND Orthopaedic Surgery Sports Medicine
PROC: 0SRD0J9 Replacement of Left Knee Joint with Synthetic Substitute, Cemented, Open Approach (ICD-10-PCS; principal; 2017-06-07 10:55)
DX: M17.12 Unilateral primary osteoarthritis, left knee (principal); Z68.41 Body mass index [BMI] 40.0-44.9, adult; Z96.651 Presence of right artificial knee joint; E78.00 Pure hypercholesterolemia, unspecified; G47.30 Sleep apnea, unspecified; I10 Essential (primary) hypertension; E11.9 Type 2 diabetes mellitus without complications; K21.9 Gastro-esophageal reflux disease without esophagitis; E66.9 Obesity, unspecified; Z87.442 Personal history of urinary calculi; Z79.4 Long term (current) use of insulin; Z79.82 Long term (current) use of aspirin; Z82.49 Family history of ischemic heart disease and other diseases of the circulatory system; Z83.3 Family history of diabetes mellitus; Z80.7 Family history of other malignant neoplasms of lymphoid, hematopoietic and related tissues

== ENCOUNTER 2021-08-14 15:56 | Inpatient (IN) ==
[2021-08-14 17:54] LABS: Basophils # (auto) 0.01 K/uL (0-0.2); Basophils % (auto) 0.1 %; Eosinophils # (auto) 0.18 K/uL (0-0.5); Eosinophils % (auto) 2.4 %; Hematocrit (blood only) 44.2 % (42-52); Hemoglobin 14.7 g/dL (14.0-18.0); Immature Granulocytes # (auto) 0.03 K/uL (0.00-0.02); Immature Granulocytes % (auto) 0.4 %; Lymphocytes # (auto) 1.96 K/uL (1.2-3.4); Lymphocytes % (auto) 26.2 %; Mean Corpuscular Hemoglobin 31.6 pg (25-34); Mean Corpuscular Hgb Conc 33.3 g/dL (32-36); Mean Corpuscular Volume 95.1 fL (80-100); Mean Platelet Volume 10.3 fL (7.4-10.4); Monocytes # (auto) 0.46 K/uL (0.11-0.59); Monocytes % (auto) 6.1 %; Neutrophils # (auto) 4.84 K/uL (1.4-6.5); Neutrophils % (auto) 64.8 %; Platelet Count 186 K/uL (130-400); RDW Standard Deviation 48.2 fL (36.4-46.3); Red Blood Count 4.65 M/uL (4.7-6.1); White Blood Count 7.48 K/uL (4.8-10.8)
[2021-08-14 17:55] LABS: Appearance Urine Clear (Clear); Bilirubin Urine Negative (Negative); Blood Urine Negative (Negative); Color Urine Yellow; Glucose Urine UA 3+ (Negative); Ketones Urine Negative (Negative); Leukocyte Esterase Urine Negative (Negative); Nitrite Urine Negative (Negative); Protein Urine Negative (Negative); Specific Gravity Urine 1.022 (1.000-1.030); Urobilinogen Urine Negative (Negative); pH Urine 7.5 (4.5-7.5)
[2021-08-14 18:17] LABS: Alanine Aminotransferase 85 (12-78); Albumin Level 3.1 gm/dl (3.4-5.0); Aspartate Aminotransferase 62 U/L (15-37); BUN Creatinine Ratio 20.6 (10-20); Blood Urea Nitrogen 22 mg/dl (7-18); Carbon Dioxide 28 mmol/L (21-32); Chloride 103 mmol/L (98-107); Creatinine Clr Calc Pharmacy 100.4 ml/min; Est GFR (African American) 83.9 ml/min; Est GFR (Non-African American) 72.4 ml/min; Glucose 149 mg/dl (70-99); Potassium 4.1 mmol/L (3.5-5.1); Sodium 140 mmol/L (136-145)
[2021-08-14 18:27] LABS: Albumin Globulin Ratio 0.8 (0.9-2); Alkaline Phosphatase 48 U/L (45-117); Bilirubin,Total 0.3 mg/dl (0.2-1); Globulin 4.1 gm/dl (2.5-4.0); Total Protein 7.2 gm/dl (6.4-8.2); Troponin I < 0.015 ng/ml (0-0.045)
--- NOTE | 2021-08-14 19:28 | Emergency Department Note ---
History of Present Illness General Chief complaint: Dizziness Stated complaint: DIZZINESS, FAINTED Time Seen by Provider: 08/14/21 19:07 Source: patient History of Present Illness Provider complaint: Dizziness Onset (ago): week(s) Location: head Pain Consistency: + intermittent Quality: + other (Lightheadedness without vertigo) Exacerbated By: + other (Standing up) Associated symptoms: + syncope; no chest pain, no cough, no fever/chills, no headaches, no nausea/vomiting or no shortness of breath This is a 61-year-old male sent here from an urgent care center due to recent syncope and irregular heartbeat. The patient states that he has been dizzy for about 2 to 3 weeks. He describes his dizziness as a lightheadedness. It is worse when he stands up. He denies any vertigo. He states that it got very bad on , 3 days ago, when he was picking up a pot of vegetable soup. He felt himself feeling very weak so he tried to sit down but passed out. He did not hit his head and denies any headache. He states that he was up against a freezer which kept him from hitting his head. He denies any fever, cough or cold symptoms, myalgias, headache, chest pain, shortness of breath, palpitations, abdominal pain, vomiting, diarrhea or urinary symptoms. He does not recall any tick bites or rash but states that he is outdoors and hunting frequently. Home Medications Medication Instructions Recorded Confirmed Type omega-3 fatty acids 1,500 mg PO HS #0 03/05/09 08/14/21 History GLUCOSAMINE-VITAMIN D (GLUCOSAMINE 1 tabs PO BID #0 04/05/15 08/14/21 History PLUS VITAMIN) GYMNEMA SYLVESTRIS LEAF (BULK) 400 mg PO BID #0 04/05/15 08/14/21 History (GYMNEMA SYLVESTRIS LEAF) chromium picolinate 200 mcg tablet 200 mcg PO QAM #0 04/05/15 08/14/21 History cinnamon bark 500 mg capsule 1,000 mg PO BID #0 04/05/15 08/14/21 History (Cinnamon) garlic 1,000 mg capsule 1,000 mg PO HS #0 04/05/15 08/14/21 History hawthorn berrios 565 mg capsule 565 mg PO BID #0 04/05/15 08/14/21 History milk thistle 500 mg capsule 500 mg PO QAM #0 04/05/15 08/14/21 History prasterone (dhea) 50 mg tablet 50 mg PO PM #0 04/05/15 08/14/21 History GINSENG (GERMAN PANAX GINSENG) 100 mg PO BID #0 04/21/15 08/14/21 History ascorbic acid (vitamin C) 1,000 mg 1 g PO HS #0 05/22/17 08/14/21 History tablet (Vitamin C) fluticasone propionate 50 2 spray INTRANASAL BID #0 05/22/17 08/14/21 History mcg/actuation nasal spray,suspension ginkgo biloba 500 mg capsule 0 mg PO QAM #0 05/22/17 08/14/21 History hydrochlorothiazide 50 mg tablet 50 mg PO QAM #0 tab 05/22/17 08/14/21 History insulin lispro 200 unit/mL (3 mL) 150 unit SUBCUT ACHS #0 05/22/17 08/14/21 History subcutaneous pen (Humalog KwikPen U-200 Insulin) vitamin E 400 unit capsule 400 unit PO BID #0 05/22/17 08/14/21 History albuterol sulfate 90 mcg/actuation 2 puff INHALATION Q4H PRN 08/14/21 08/14/21 History aerosol inhaler (ProAir HFA) ashwagandha root extract 300 mg 300 mg PO QAM 08/14/21 08/14/21 History capsule aspirin 325 mg tablet 325 mg PO PM 08/14/21 08/14/21 History atorvastatin 80 mg tablet 80 mg PO PM 08/14/21 08/14/21 History azelastine 137 mcg (0.1 %) nasal 2 spray INTRANASAL BID 08/14/21 08/14/21 History spray aerosol cholecalciferol (vitamin D3) 50 50 mcg PO PM 08/14/21 08/14/21 History mcg (2,000 unit) capsule cyanocobalamin (vitamin B-12) 1,000 mcg PO QAM 08/14/21 08/14/21 History 1,000 mcg tablet (Vitamin B-12) dulaglutide 1.5 mg/0.5 mL 1.5 mg SUBCUT WK 08/14/21 08/14/21 History subcutaneous pen injector (Trulicity) empagliflozin 25 mg tablet 25 mg PO QAM 08/14/21 08/14/21 History (Jardiance) hydrocodone bitartrate 40 mg 0 mg PO ONCE 08/14/21 08/14/21 History tablet,crush resist,extended rel. 24hr insulin glargine 100 unit/mL (3 65 - 70 unit SUBCUT AMPM 08/14/21 08/14/21 History mL) subcutaneous pen (Lantus Solostar U-100 Insulin) ipratropium bromide 21 mcg (0.03 2 spray INTRANASAL TID PRN 08/14/21 08/14/21 History %) nasal spray loratadine 10 mg tablet 10 mg PO QAM 08/14/21 08/14/21 History losartan 100 mg tablet 100 mg PO QAM 08/14/21 08/14/21 History metformin 1,000 mg tablet 1,000 mg PO BIDM 08/14/21 08/14/21 History multivitamin 1 tab PO PM 08/14/21 08/14/21 History potassium citrate 10 mEq (1,080 20 meq PO TID 08/14/21 08/14/21 History mg) tablet,extended release sildenafil 100 mg tablet (Viagra) 100 mg PO DIRECTED PRN MDD 1 08/14/21 08/14/21 History dose/24h turmeric 400 mg capsule 400 mg PO QDL 08/14/21 08/14/21 History zinc 100 mg tablet 100 mg PO PM 08/14/21 08/14/21 History Allergies Allergy/AdvReac Type Severity Reaction Status Date / Time No Known Allergies Allergy Unknown NKA Verified 08/14/21 20:07 Past Med/Surg History Medical History DM type 2 (diabetes mellitus, type 2) Dyslipidemia HTN (hypertension) Sleep apnea Social History Smoking Status: Never smoker Preferred Language: [place] Islander Feels Safe at Home: Yes Review of Systems See HPI for pertinent positives & negatives. and A total of 10 systems reviewed and were otherwise negative Physical Exam Vital Signs Vital Signs - 24 hr 08/14/21 16:19 08/14/21 19:52 08/14/21 20:40 Temperature 36 C L Temperature Source Temporal Artery Scan Pulse Rate - Lying 66 Pulse Rate - Sitting 67 Pulse Rate - Standing 71 Pulse Rate 59 L Respiratory Rate 18 Respiratory Effort / Characteristics Non-Labored Respiratory Depth Normal Respiratory Pattern Regular Blood Pressure - Lying 159/79 H Blood Pressure - Sitting 175/79 H Blood Pressure- Standing 180/80 H Blood Pressure 173/69 H Blood Pressure Mean 103 Pulse Oximetry 95 Oxygen Delivery Method Room Air Room Air Sepsis Recent Fever Within 48 Hours No Sepsis New/Unexplained Change in Mental Status No Sepsis Action Taken by Nursing No Action Required Constitutional: Vital signs reviewed. Eyes: Pupils are equal round reactive to light. Conjunctiva are noninjected. ENT: Pharynx is clear without erythema or exudate. Mucous membranes are moist. Neck supple without meningeal signs. Respiratory: Clear to auscultation bilaterally. Breath sounds are equal bi laterally. Cardiovascular: Regularly irregular rhythm. Bradycardic. GI: Soft, nondistended and nontender. Bowel sounds are present. Musculoskeletal: No peripheral edema. No lower extremity tenderness. Integumentary: No cyanosis. or jaundice. Neurological: The patient is awake and alert. No focal deficits. Psychiatric: Normal affect. Not anxious appearing. Medical Decision Making Differential Diagnosis Syncope, dysrhythmia, atrial fibrillation, SVT, heart block, carditis, tickborne illness Medical Records Attestation: I reviewed the patient's medical records. I did perform a limited focused review of portions of the patient's old chart on the electronic medical record. The patient has had no recent pertinent visits to this hospital. Home Medications Current Medication List: was personally reviewed by me Laboratory Data Attestation: I reviewed the patient's lab results. Result diagrams: 08/14/21 17:42 08/14/21 17:42 Lab Results 08/14/21 08/14/21 08/14/21 Range/Units 17:42 17:42 17:42 WBC 7.48 (4.8-10.8) K/uL RBC 4.65 L (4.7-6.1) M/uL Hgb 14.7 (14.0-18.0) g/dL Hct 44.2 (42-52) % MCV 95.1 (80-100) fL MCH 31.6 (25-34) pg MCHC 33.3 (32-36) g/dL RDW Std Deviation 48.2 H (36.4-46.3) fL RDW Coeff of Lars 14.0 (11.5-14.5) % Plt Count 186 (130-400) K/uL MPV 10.3 (7.4-10.4) fL Immature Gran % (Auto) 0.4 % Neut % (Auto) 64.8 % Lymph % (Auto) 26.2 % [place] % (Auto) 6.1 % Eos % (Auto) 2.4 % Baso % (Auto) 0.1 % Neut # (Auto) 4.84 (1.4-6.5) K/uL Lymph # (Auto) 1.96 (1.2-3.4) K/uL [place] # (Auto) 0.46 (0.11-0.59) K/uL Eos # (Auto) 0.18 (0-0.5) K/uL Baso # (Auto) 0.01 (0-0.2) K/uL Immature Gran # (Auto) 0.03 H (0.00-0.02) K/uL Sodium 140 (136-145) mmol/L Potassium 4.1 (3.5-5.1) mmol/L Chloride 103 (98-107) mmol/L Carbon Dioxide 28 (21-32) mmol/L Anion Gap 9.0 (3-11) BUN 22 H (7-18) mg/dl Creatinine 1.09 (0.6-1.4) mg/dl Est Cr Clr Drug Dosing 100.4 ml/min Est GFR ( Amer) 83.9 ml/min Est GFR (Non-Af Amer) 72.4 ml/min BUN/Creatinine Ratio 20.6 H (10-20) Glucose 149 H (70-99) mg/dl Calcium 9.0 (8.5-10.1) mg/dl Magnesium 1.8 (1.8-2.4) mg/dl Total Bilirubin 0.3 (0.2-1) mg/dl AST 62 H (15-37) U/L ALT 85 H (12-78) Alkaline Phosphatase 48 (45-117) U/L Troponin I < 0.015 (0-0.045) ng/ml NT-Pro-B Natriuret Pep 424 (0-900) pg/ml Total Protein 7.2 (6.4-8.2) gm/dl Albumin 3.1 L (3.4-5.0) gm/dl Globulin 4.1 H (2.5-4.0) gm/dl Albumin/Globulin Ratio 0.8 L (0.9-2) TSH 3.310 (0.300-4.500) uIu/ml Specimen Hemolysis Urine Color Yellow Urine Appearance Clear (Clear) Urine pH 7.5 (4.5-7.5) Ur Specific Emerson 1.022 (1.000-1.030) Urine Protein Negative (Negative) Urine Glucose (UA) 3+ H (Negative) Urine Ketones Negative (Negative) Urine Blood Negative (Negative) Urine Nitrite Negative (Negative) Urine Bilirubin Negative (Negative) Urine Urobilinogen Negative (Negative) Ur Leukocyte Esterase Negative (Negative) Anaplasma Smear See Comment Babesia Smear See Comment Lyme Disease IgG Ab (Negative) Lyme Disease IgM Ab (Negative) SARS-CoV-2, RNA, NAAT (NEGATIVE) 08/14/21 08/14/21 Range/Units 17:42 19:29 WBC (4.8-10.8) K/uL RBC (4.7-6.1) M/uL Hgb (14.0-18.0) g/dL Hct (42-52) % MCV (80-100) fL MCH (25-34) pg MCHC (32-36) g/dL RDW Std Deviation (36.4-46.3) fL RDW Coeff of Lars (11.5-14.5) % Plt Count (130-400) K/uL MPV (7.4-10.4) fL Immature Gran % (Auto) % Neut % (Auto) % Lymph % (Auto) % [place] % (Auto) % Eos % (Auto) % Baso % (Auto) % Neut # (Auto) (1.4-6.5) K/uL Lymph # (Auto) (1.2-3.4) K/uL [place] # (Auto) (0.11-0.59) K/uL Eos # (Auto) (0-0.5) K/uL Baso # (Auto) (0-0.2) K/uL Immature Gran # (Auto) (0.00-0.02) K/uL Sodium (136-145) mmol/L Potassium (3.5-5.1) mmol/L Chloride (98-107) mmol/L Carbon Dioxide (21-32) mmol/L Anion Gap (3-11) BUN (7-18) mg/dl Creatinine (0.6-1.4) mg/dl Est Cr Clr Drug Dosing ml/min Est GFR ( Amer) ml/min Est GFR (Non-Af Amer) ml/min BUN/Creatinine Ratio (10-20) Glucose (70-99) mg/dl Calcium (8.5-10.1) mg/dl Magnesium (1.8-2.4) mg/dl Total Bilirubin (0.2-1) mg/dl AST (15-37) U/L ALT (12-78) Alkaline Phosphatase (45-117) U/L Troponin I (0-0.045) ng/ml NT-Pro-B Natriuret Pep (0-900) pg/ml Total Protein (6.4-8.2) gm/dl Albumin (3.4-5.0) gm/dl Globulin (2.5-4.0) gm/dl Albumin/Globulin Ratio (0.9-2) TSH (0.300-4.500) uIu/ml Specimen Hemolysis Urine Color Urine Appearance (Clear) Urine pH (4.5-7.5) Ur Specific Emerson (1.000-1.030) Urine Protein (Negative) Urine Glucose (UA) (Negative) Urine Ketones (Negative) Urine Blood (Negative) Urine Nitrite (Negative) Urine Bilirubin (Negative) Urine Urobilinogen (Negative) Ur Leukocyte Esterase (Negative) Anaplasma Smear Babesia Smear Lyme Disease IgG Ab Negative (Negative) Lyme Disease IgM Ab Negative (Negative) SARS-CoV-2, RNA, NAAT NEGATIVE (NEGATIVE) Imaging Data Radiologist's Impression: Chest X-Ray 08/14/21 19:26 XR chest 1V portable CLINICAL HISTORY: Hypertension. COMPARISON STUDY: Chest radiograph May 22, 2017. FINDINGS: Lung volumes are normal. There is no pneumothorax or pleural effusion. There is mild to moderate cardiomegaly. There is pulmonary vascular congestion. No consolidation is identified. IMPRESSION: Cardiomegaly with pulmonary vascular congestion. ACT 112: Negative or not required by law. Electronically signed by: Donavon Montenegro M.D. 08/14/2021 7:45 PM ECG Data Attestation: I personally reviewed and interpreted this ECG as follows: Indication: + syncope Rate (beats per minute): 55 Rhythm: + normal sinus ECG Intervals/blocks: + Mobitz Type I and + Incomplete right bundle branch block ECG ST segments: no ST elevation ECG Findings: no PVCs Comparison ECG Date: no prior available MDM Narrative I did evaluate the patient as noted above. He is presenting with lighthea dedness for about 2 to 3 weeks. He had a syncopal episode 3 days ago although had no head injury at the time. He denies any other symptoms. IV access was established. I did place an order for continuous cardiac monitoring. The monitor showed sinus bradycardiaat a rate of 58 bpm with a Mobitz 1 heart block. I did order and personally review the patient's 12-lead EKG as described above. He has sinus bradycardia with a rate of 55 bpm and a Mobitz 1 heart block. No acute ischemia is noted. I did order and personally reviewed the images of the patient's chest x-ray as described above. I did order and review the patient's blood work as noted in the electronic medical record. CBC is unremarkable without leukocytosis or anemia. Platelet count is within normal limits. Electrolytes are unremarkable. LFTs show an elevation of his AST and ALT at 62 and 85 respectively. Troponin is negative. I did order testing for Lyme disease and anaplasmosis to evaluate for possible Lyme carditis. Urinalysis is unremarkable. I did discuss test results with the patient. I did recommend hospitalization for further care and evaluation and cardiac consultation. I did discuss case with hospitalist and skilled nursing case manager. Impression & Plan AV block, Mobitz 1, Bradycardia, Syncope, Abnormal LFTs Discharge Plan Visit Data Chief Complaint: Dizziness Stated Complaint: DIZZINESS, FAINTED ED Provider: Edwin Toscano Discharge Problem: AV block, Mobitz 1, Bradycardia, Syncope, Abnormal LFTs Patient Disposition: Being Evaluated by Hospitalist Forms Stand Alone Forms: [facility] Prescriptions Prescriptions: No Action [place] 3 Capsule 1,500 mg PO HS Qty: 0 RF: 0 milk thistle 500 mg Capsule 500 mg PO QAM Qty: 0 RF: 0 GLUCOSAMINE-VITAMIN D (GLUCOSAMINE PLUS VITAMIN) 1 TAB tablet 1 tabs PO BID Qty: 0 RF: 0 cinnamon bark [Cinnamon] 500 mg Capsule 1,000 mg PO BID Qty: 0 RF: 0 GYMNEMA SYLVESTRIS LEAF (BULK) (GYMNEMA SYLVESTRIS LEAF) 1 POW POW 400 mg PO BID Qty: 0 RF: 0 garlic 1,000 mg Capsule 1,000 mg PO HS Qty: 0 RF: 0 hawthorn berrios 565 mg Capsule 565 mg PO BID Qty: 0 RF: 0 chromium picolinate 200 mcg Tablet 200 mcg PO QAM Qty: 0 RF: 0 prasterone (dhea) 50 mg Tablet 50 mg PO PM Qty: 0 RF: 0 GINSENG (GERMAN PANAX GINSENG) 100 MG capsule 100 mg PO BID Qty: 0 RF: 0 ascorbic acid (vitamin C) [Vitamin C] 1,000 mg Tablet 1 g PO HS Qty: 0 RF: 0 hydrochlorothiazide 50 mg Tablet 50 mg PO QAM Qty: 0 RF: 0 fluticasone propionate [Flonase] 50 mcg/actuation [place],Suspension 2 spray INTRANASAL BID Qty: 0 RF: 0 vitamin E 400 unit Capsule 400 unit PO BID Qty: 0 RF: 0 ginkgo biloba 500 mg Capsule 0 mg PO QAM Qty: 0 RF: 0 Humalog KwikPen Insulin 200 unit/mL (3 mL) Insulin Pen 150 unit SUBCUT ACHS Qty: 0 RF: 0 multivitamin Tablet 1 tab PO PM RF: 0 zinc 100 mg Tablet 100 mg PO PM RF: 0 atorvastatin 80 mg tablet 80 mg PO PM RF: 0 aspirin 325 mg Tablet 325 mg PO PM RF: 0 cyanocobalamin (vitamin B-12) [Vitamin B-12] 1,000 mcg Tablet 1,000 mcg PO QAM RF: 0 sildenafil [Viagra] 100 mg Tablet 100 mg PO DIRECTED MDD 1 dose/24h PRN (Reason: Erectile Dysfunction) RF: 0 potassium citrate 10 mEq (1,080 mg) tablet extended release 20 meq PO TID RF: 0 metformin 1,000 mg tablet 1,000 mg PO BIDM RF: 0 azelastine 137 mcg (0.1 %) aerosol,spray 2 spray INTRANASAL BID RF: 0 albuterol sulfate [ProAir HFA] 90 mcg/actuation Hfa Aerosol Inhaler 2 puff INHALATION Q4H PRN (Reason: cough/ sob) RF: 0 losartan 100 mg tablet 100 mg PO QAM RF: 0 ipratropium bromide 21 mcg (0.03 %) spray,non-aerosol 2 spray INTRANASAL TID PRN (Reason: Runny Nose) RF: 0 loratadine 10 mg Tablet 10 mg PO QAM RF: 0 Lantus Solostar U-100 Insulin 100 unit/mL (3 mL) insulin pen 65 - 70 unit SUBCUT AMPM RF: 0 cholecalciferol (vitamin D3) 50 mcg (2,000 unit) Capsule 50 mcg PO PM RF: 0 Jardiance 25 mg tablet 25 mg PO QAM RF: 0 hydrocodone bitartrate 40 mg Tablet,Oral Only,Ext.Rel.24 Hr 0 mg PO ONCE RF: 0 turmeric 400 mg Capsule 400 mg PO QDL RF: 0 ashwagandha root extract 300 mg Capsule 300 mg PO QAM RF: 0 Trulicity 1.5 mg/0.5 mL pen injector 1.5 mg SUBCUT WK RF: 0 Referrals Referrals: Yajaira Finnegan DO [Primary Care Provider] - Discharge Problem: Syncope Qualifiers: Syncope type: unspecified Qualified Code(s): R55 - Syncope and collapse
[2021-08-14 19:29] LABS: Magnesium 1.8 mg/dl (1.8-2.4)
--- NOTE | 2021-08-14 19:46 | XRay Report ---
XR chest 1V portable CLINICAL HISTORY: Hypertension. COMPARISON STUDY: Chest radiograph May 22, 2017. FINDINGS: Lung volumes are normal. There is no pneumothorax or pleural effusion. There is mild to mod erate cardiomegaly. There is pulmonary vascular congestion. No consolidation is identified. IMPRESSION: Cardiomegaly with pulmonary vascular congestion. ACT 112: Negative or not required by law. Electronically signed by: Donavon Montenegro M.D. 08/14/2021 7:45 PM
[2021-08-14 19:56] LABS: Lyme Ab IgG w/WB Rflx Negative (Negative); Lyme Ab IgM w/WB Rflx Negative (Negative)
--- NOTE | 2021-08-14 20:16 | History & Physical Report ---
Date of Service August 14, 2021 Assessment & Plan (1) Syncope: Plan: Differentials include orthostasis, arrhythmia(note of second-degree AV block, Mobitz type I on EKG at the ER), obstructive cardiac pathology hypertension, elevated hyperlipidemia on statin Rx DM2 insulin requiring, reasonable control as of recent hemoglobin A1c of 7.14 June 2021 Abnormal LFT secondary to fatty liver disease (hepatic steatosis noted on outpatient ultrasound) OBS PCU Check orthostatic vitals, TTE Cardiology consult Re: Syncope, abnormal EKG Atropine as needed symptomatic bradycardia N.p.o. after midnight in anticipation of any procedure Basal insulin adjusted for n.p.o. status, ISS BG goal 1 10-1 40 DVT prophylaxis per Lovenox subcu Full code Text document was generated using [employer] voice recognition software. It may contain grammatical or spelling errors. Kindly contact undersigned for clarification of any documentation item in question. History of Present Illness Chief Complaint: syncope Primary Care Provider: Dr. Richey History obtained from patient and records. Medical history significant for hypertension, hyperlipidemia, LUX on CPAP, DM2 insulin requiring, fatty liver disease. Last confinement May 2017 under Orthopedics service for elective left knee surgery. 3 weeks history of dizziness described as lightheadedness/near syncopal events, intermittent symptoms, usually noted on motion, standing up. Patient denies chest pain, S OB, headache. 3 days ago, patient noted tunnel vision prior to blacking out for a few moments for a few moments after reaching for a pot of soup on the floor. Denies head trauma. Achy flank pain post syncopal event. No tongue biting, no incontinence symptoms. Patient seen at urgent care center today. EKG showed sinus rhythm with first-degree AV block as per documentation. Patient directed to ER for evaluation. 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 Allergies Allergy/AdvReac Type Severity Reaction Status Date / Time No Known Allergies Allergy Unknown NKA Verified 08/14/21 20:07 Home Medications Medication Instructions Recorded Confirmed Type omega-3 fatty acids 1,500 mg PO HS #0 03/05/09 08/14/21 History GLUCOSAMINE-VITAMIN D (GLUCOSAMINE 1 tabs PO BID #0 04/05/15 08/14/21 History PLUS VITAMIN) GYMNEMA SYLVESTRIS LEAF (BULK) 400 mg PO BID #0 04/05/15 08/14/21 History (GYMNEMA SYLVESTRIS LEAF) chromium picolinate 200 mcg tablet 200 mcg PO QAM #0 04/05/15 08/14/21 History cinnamon bark 500 mg capsule 1,000 mg PO BID #0 04/05/15 08/14/21 History (Cinnamon) garlic 1,000 mg capsule 1,000 mg PO HS #0 04/05/15 08/14/21 History hawthorn berrios 565 mg capsule 565 mg PO BID #0 04/05/15 08/14/21 History milk thistle 500 mg capsule 500 mg PO QAM #0 04/05/15 08/14/21 History prasterone (dhea) 50 mg tablet 50 mg PO PM #0 04/05/15 08/14/21 History GINSENG (ALBANIAN PANAX GINSENG) 100 mg PO BID #0 04/21/15 08/14/21 History ascorbic acid (vitamin C) 1,000 mg 1 g PO HS #0 05/22/17 08/14/21 History tablet (Vitamin C) fluticasone propionate 50 2 spray INTRANASAL BID #0 05/22/17 08/14/21 History mcg/actuation nasal spray,suspension ginkgo biloba 500 mg capsule 0 mg PO QAM #0 05/22/17 08/14/21 History hydrochlorothiazide 50 mg tablet 50 mg PO QAM #0 tab 05/22/17 08/14/21 History insulin lispro 200 unit/mL (3 mL) 150 unit SUBCUT ACHS #0 05/22/17 08/14/21 History subcutaneous pen (Humalog KwikPen U-200 Insulin) vitamin E 400 unit capsule 400 unit PO BID #0 05/22/17 08/14/21 History albuterol sulfate 90 mcg/actuation 2 puff INHALATION Q4H PRN 08/14/21 08/14/21 History aerosol inhaler (ProAir HFA) ashwagandha root extract 300 mg 300 mg PO QAM 08/14/21 08/14/21 History capsule aspirin 325 mg tablet 325 mg PO PM 08/14/21 08/14/21 History atorvastatin 80 mg tablet 80 mg PO PM 08/14/21 08/14/21 History azelastine 137 mcg (0.1 %) nasal 2 spray INTRANASAL BID 08/14/21 08/14/21 History spray aerosol cholecalciferol (vitamin D3) 50 50 mcg PO PM 08/14/21 08/14/21 History mcg (2,000 unit) capsule cyanocobalamin (vitamin B-12) 1,000 mcg PO QAM 08/14/21 08/14/21 History 1,000 mcg tablet (Vitamin B-12) dulaglutide 1.5 mg/0.5 mL 1.5 mg SUBCUT WK 08/14/21 08/14/21 History subcutaneous pen injector (Trulicity) empagliflozin 25 mg tablet 25 mg PO QAM 08/14/21 08/14/21 History (Jardiance) hydrocodone bitartrate 40 mg 0 mg PO ONCE 08/14/21 08/14/21 History tablet,crush resist,extended rel. 24hr insulin glargine 100 unit/mL (3 65 - 70 unit SUBCUT AMPM 08/14/21 08/14/21 History mL) subcutaneous pen (Lantus Solostar U-100 Insulin) ipratropium bromide 21 mcg (0.03 2 spray INTRANASAL TID PRN 08/14/21 08/14/21 History %) nasal spray loratadine 10 mg tablet 10 mg PO QAM 08/14/21 08/14/21 History losartan 100 mg tablet 100 mg PO QAM 08/14/21 08/14/21 History metformin 1,000 mg tablet 1,000 mg PO BIDM 08/14/21 08/14/21 History multivitamin 1 tab PO PM 08/14/21 08/14/21 History potassium citrate 10 mEq (1,080 20 meq PO TID 08/14/21 08/14/21 History mg) tablet,extended release sildenafil 100 mg tablet (Viagra) 100 mg PO DIRECTED PRN MDD 1 08/14/21 08/14/21 History dose/24h turmeric 400 mg capsule 400 mg PO QDL 08/14/21 08/14/21 History zinc 100 mg tablet 100 mg PO PM 08/14/21 08/14/21 History Past Med/Surg History Medical History DM type 2 (diabetes mellitus, type 2) Dyslipidemia HTN (hypertension) Sleep apnea Social History Smoking Status: Former smoker Second Hand Exposure: No; Do You Dip or Chew Tobacco: No; Tobacco Cessation Education Requested by Patient: No Hx Alcohol Use: Yes Alcohol type: beer, wine and hard liquor Hx Substance Use: No Preferred Language: Yoruba Communication Ability: Effective Weather Reporter Required: No Beliefs That Will Affect Care: None Current Living Situation: Spouse Other Information That Helps Us Care for You: No Feels Safe at Home: Yes Safety Concerns: Feels Safe At This Time Assistive Devices: None Assistive Devices Comment: at bedside Review of Systems Review of Systems: As per HPI, all 10 systems reviewed, all other ROS negative Physical Exam Physical Exam: GENERAL: Comfortable, morbidly obese, pleasant, no respiratory distress SKIN: Normal color, warm HEENT: Alopecia, pink palpebral conjunctivae, no ptosis, moist buccal mucosa NECK : Supple, short neck, no tenderness CHEST : CTA, no tenderness HEART : RRR, no obvious murmurs ABDOMEN: Some distention, nontender EXTREMITIES : Minimal LE swelling, no LE tenderness, no other conspicuous deformities noted NEUROLOGIC : Coherent, no facial asymmetry, no other gross focality Results & Data Results & Data ([facility]) Vital Signs (Past 12 Hours) Vital Signs Temp Pulse Resp BP Pulse Ox 08/14/21 16:19 36 C L 59 L 18 173/69 H 95 Laboratory Results Laboratory Results WBC 7.48 K/uL (4.8-10.8) 08/14/21 17:42 RBC 4.65 M/uL (4.7-6.1) L 08/14/21 17:42 Hgb 14.7 g/dL (14.0-18.0) 08/14/21 17:42 Hct 44.2 % (42-52) 08/14/21 17:42 MCV 95.1 fL (80-100) 08/14/21 17:42 MCH 31.6 pg (25-34) 08/14/21 17:42 MCHC 33.3 g/dL (32-36) 08/14/21 17:42 RDW Std Deviation 48.2 fL (36.4-46.3) H 08/14/21 17:42 RDW Coeff of Lars 14.0 % (11.5-14.5) 08/14/21 17:42 Plt Count 186 K/uL (130-400) 08/14/21 17:42 MPV 10.3 fL (7.4-10.4) 08/14/21 17:42 Immature Gran % (Auto) 0.4 % 08/14/21 17:42 Neut % (Auto) 64.8 % 08/14/21 17:42 Lymph % (Auto) 26.2 % 08/14/21 17:42 [place] % (Auto) 6.1 % 08/14/21 17:42 Eos % (Auto) 2.4 % 08/14/21 17:42 Baso % (Auto) 0.1 % 08/14/21 17:42 Neut # (Auto) 4.84 K/uL (1.4-6.5) 08/14/21 17:42 Lymph # (Auto) 1.96 K/uL (1.2-3.4) 08/14/21 17:42 [place] # (Auto) 0.46 K/uL (0.11-0.59) 08/14/21 17:42 Eos # (Auto) 0.18 K/uL (0-0.5) 08/14/21 17:42 Baso # (Auto) 0.01 K/uL (0-0.2) 08/14/21 17:42 Immature Gran # (Auto) 0.03 K/uL (0.00-0.02) H 08/14/21 17:42 Sodium 140 mmol/L (136-145) 08/14/21 17:42 Potassium 4.1 mmol/L (3.5-5.1) 08/14/21 17:42 Chloride 103 mmol/L (98-107) 08/14/21 17:42 Carbon Dioxide 28 mmol/L (21-32) 08/14/21 17:42 Anion Gap 9.0 (3-11) 08/14/21 17:42 BUN 22 mg/dl (7-18) H 08/14/21 17:42 Creatinine 1.09 mg/dl (0.6-1.4) 08/14/21 17:42 Est Cr Clr Drug Dosing 100.4 ml/min 08/14/21 17:42 Est GFR ( Amer) 83.9 ml/min 08/14/21 17:42 Est GFR (Non-Af Amer) 72.4 ml/min 08/14/21 17:42 BUN/Creatinine Ratio 20.6 (10-20) H 08/14/21 17:42 Glucose 149 mg/dl (70-99) H 08/14/21 17:42 Calcium 9.0 mg/dl (8.5-10.1) 08/14/21 17:42 Magnesium 1.8 mg/dl (1.8-2.4) 08/14/21 17:42 Total Bilirubin 0.3 mg/dl (0.2-1) 08/14/21 17:42 AST 62 U/L (15-37) H 08/14/21 17:42 ALT 85 (12-78) H 08/14/21 17:42 Alkaline Phosphatase 48 U/L (45-117) 08/14/21 17:42 Troponin I < 0.015 ng/ml (0-0.045) 08/14/21 17:42 Total Protein 7.2 gm/dl (6.4-8.2) 08/14/21 17:42 Albumin 3.1 gm/dl (3.4-5.0) L 08/14/21 17:42 Globulin 4.1 gm/dl (2.5-4.0) H 08/14/21 17:42 Albumin/Globulin Ratio 0.8 (0.9-2) L 08/14/21 17:42 TSH 3.310 uIu/ml (0.300-4.500) 08/14/21 17:42 Specimen Hemolysis 08/14/21 17:42 Urine Color Yellow 08/14/21 17:42 Urine Appearance Clear (Clear) 08/14/21 17:42 Urine pH 7.5 (4.5-7.5) 08/14/21 17:42 Ur Specific [place] 1.022 (1.000-1.030) 08/14/21 17:42 Urine Protein Negative (Negative) 08/14/21 17:42 Urine Glucose (UA) 3+ (Negative) H 08/14/21 17:42 Urine Ketones Negative (Negative) 08/14/21 17:42 Urine Blood Negative (Negative) 12/05/21 17:42 Urine Nitrite Negative (Negative) 08/14/21 17:42 Urine Bilirubin Negative (Negative) 08/14/21 17:42 Urine Urobilinogen Negative (Negative) 08/14/21 17:42 Ur Leukocyte Esterase Negative (Negative) 08/14/21 17:42 Anaplasma Smear See Comment 08/14/21 17:42 Babesia Smear See Comment 08/14/21 17:42 Lyme Disease IgG Ab Negative (Negative) 08/14/21 17:42 Lyme Disease IgM Ab Negative (Negative) 08/14/21 17:42 SARS-CoV-2, RNA, NAAT NEGATIVE (NEGATIVE) 08/14/21 19:29 Impressions Chest X-Ray 08/14/21 19:26 XR chest 1V portable CLINICAL HISTORY: Hypertension. COMPARISON STUDY: Chest radiograph May 22, 2017. FINDINGS: Lung volumes are normal. There is no pneumothorax or pleural effusion. There is mild to moderate cardiomegaly. There is pulmonary vascular congestion. No consolidation is identified. IMPRESSION: Cardiomegaly with pulmonary vascular congestion. ACT 112: Negative or not required by law. Electronically signed by: Donavon Montenegro M.D. 08/14/2021 7:[address] abdomen pelvis initial read: No prior examfor comparison. Normal cardiac size with coronaryarte rycalcifications. Clear lung bases. Diffuse fattyliver. Nodular margins throughout the liver consistent with fattyinfiltration. Unremarkable gallbladder and biliarysystem. Normal spleen, pancreas and bilateral adrenal glands. Bilateral perinephric stranding. Bilateral intrarenal stones, largest on the right seen in the mid lower renal pole measuring 4.7 mmin largest on the left seen in the lower pole measuring 9.4 mm. No hydronephrosis seen bilaterally. Small right lower renal pole exophytic cysts, measuring 2.0 cm. Atherosclerotic disease of aortawith no aneurysm. Normal stomach. Nonspecific small bowel. Scattered fecal debriswithin the colon with mild diverticulosis, no signs of diverticulitis. Normal appendix. Normal urinarybladder. No free fluid. Degenerative disease of the spine. EKG as per my interpretation: Rate 55, second-degree AV block Mobitz type I, no ischemia
[2021-08-14 20:44] LABS: NT Pro B Type Natriuretic Pept 424 pg/ml (0-900)
[2021-08-14] MEDS ORDERED: traMADol HCL 50 MG TABLET PO PRN (23:42)
[2021-08-14] MEDS ORDERED: CARBOHYDRATES FOR HYPOGLYCEMIA PO PRN (23:42)
[2021-08-14] MEDS ORDERED: GLUCOSE 40% GEL 15 GM TUBE PO PRN (23:42)
[2021-08-14] MEDS ORDERED: DEXTROSE 50% 50 ML SYRINGE IV PRN (23:42)
[2021-08-14] MEDS ORDERED: GLUCAGON FOR INJ 1 MG VIAL SQ PRN (23:42)
[2021-08-14] MEDS ORDERED: GLUCOSE 10 TABS/TUBE PO PRN (23:42)
[2021-08-14] MEDS ORDERED: ATROPINE SULFATE 0.1 MG/ML 10ML SYR IV PRN (23:42)
[2021-08-15] MEDS ORDERED: LACTATED RINGER'S 1,000 ML IV SCH
[2021-08-15] MEDS ORDERED: INSULIN ASPART 100 UNITS/ML 3 ML PEN SC SCH
[2021-08-15] MEDS: LOSARTAN POTASSIUM 50 MG TAB PO SCH (03:55)
--- NOTE | 2021-08-15 06:59 | CT Scan Report ---
CT abd pelvis wo con CLINICAL HISTORY: R flank pain,trauma COMPARISON STUDY: 04/21/2015 CT DOSE: 1534.63 mGy.cm TECHNIQUE: Standard CT of the Abdomen and Pelvis was performed without IV contrast. The patient did not receive oral contrast. A dose lowering technique was utilized adhering to the principles of NEFTALI [place]. FINDINGS: Lung base: The lung bases are clear. The heart is mildly enlarged with mitral annular calcification present. Abdominal cavity: There is no evidence for abdominal mass, adenopathy or ascites. There is a small le ft inguinal hernia containing peritoneal fat. Liver: The liver is homogeneous in attenuation on these limited noncontrast images..There is evidence for mild hepatomegaly and fatty infiltration. A 5 mm parenchymal calcification is present. Spleen: The spleen is homogeneous in attenuation on these limited noncontrast images. Pancreas: The pancreas is homogeneous in attenuation on these limited noncontrast images. Gall Bladder: The gallbladder is well distended with no evidence for cholelithiasis, wall thickening or pericholecystic edema.. Adrenal glands: The adrenal glands are normal in size and attenuation on these limited noncontrast im ages. Kidneys: The kidneys are homogeneous in attenuation on these limited noncontrast images. On the right side, there are 3, 3 4 mm nonobstructing renal calculi. On the left side, there is a single, 11 mm n onobstructing renal calculus. There is no evidence for hydronephrosis bilaterally. There is no gross renal mass on these limited noncontrast images. Chronic perinephric stranding is present. Bowel: The stomach is grossly distended with liquid and food stuff. The bowel loops are normally plac ed within the abdomen and pelvis without evidence for dilatation or obstruction. There is mild sigmoi d diverticulosis without evidence for diverticulitis. There are no inflammatory changes present. Ther e is no evidence for free air. There is no evidence for an inflamed appendix. Bladder: There is no evidence for focal bladder wall thickening, calculus or diverticulum. : There is no evidence for pelvic mass or adenopathy. Vasculature: There is no evidence for focal aneurysmal dilatation of the abdominal aorta. Mild athero sclerotic calcification is present. Osseous structures: There is no acute osseous pathology. Degenerative changes are seen within the spi ne and SI joints. IMPRESSION: 1. No acute intra-abdominal or pelvic abnormality on these limited noncontrast images. 2. Bilateral nonobstructing renal calculi. 3. Sigmoid diverticulosis without evidence for diverticulitis. 4. Additional nonacute findings are delineated above. ACT 112: Negative or not required by law. Electronically signed by: Estevan Dalton M.D. 08/15/2021 6:58 AM
[2021-08-15] MEDS: INSULIN ASPART 100 UNITS/ML VIAL SC SCH ×4 (08:07→20:12)
[2021-08-15] MEDS: CYANOCOBALAMIN 500 MCG TABLET (VITAMIN B-12) PO SCH (08:08)
[2021-08-15] MEDS: ENOXAPARIN INJ 40 MG/0.4 ML SYR SQ SCH (08:08)
[2021-08-15] MEDS: LORATADINE 10 MG TAB PO SCH (08:08)
[2021-08-15] MEDS: MULTIVITAMIN TAB PO SCH (08:09)
[2021-08-15] MEDS: FLUTICASONE PROPIONATE NA SPR 16 GM BTL SCH ×2 (08:09→20:10)
[2021-08-15] MEDS: AZELASTINE HCL 0.1% NASAL 200 SPRAYS/27,400 MCG BTL SCH ×2 (08:09→20:10)
[2021-08-15] MEDS: INSULIN GLARGINE SOLOSTAR 100 UNITS/ML 3 ML PEN SC SCH (08:09)
[2021-08-15 08:37] LABS: Basophils # (auto) 0.02 K/uL (0-0.2); Basophils % (auto) 0.3 %; Eosinophils % (auto) 3.4 %; Hematocrit (blood only) 43.9 % (42-52); Hemoglobin 14.5 g/dL (14.0-18.0); Immature Granulocytes # (auto) 0.02 K/uL (0.00-0.02); Immature Granulocytes % (auto) 0.3 %; Lymphocytes # (auto) 1.47 K/uL (1.2-3.4); Lymphocytes % (auto) 24.8 %; Mean Corpuscular Hemoglobin 31.3 pg (25-34); Mean Corpuscular Volume 94.6 fL (80-100); Mean Platelet Volume 9.7 fL (7.4-10.4); Monocytes # (auto) 0.45 K/uL (0.11-0.59); Monocytes % (auto) 7.6 %; Neutrophils # (auto) 3.76 K/uL (1.4-6.5); Neutrophils % (auto) 63.6 %; Platelet Count 184 K/uL (130-400); RDW Coefficient of Variation 14.2 % (11.5-14.5); RDW Standard Deviation 48.6 fL (36.4-46.3); Red Blood Count 4.64 M/uL (4.7-6.1); White Blood Count 5.92 K/uL (4.8-10.8)
[2021-08-15] MEDS ORDERED: LOSARTAN POTASSIUM 50 MG TAB PO SCH (09:00)
[2021-08-15 09:26] LABS: BUN Creatinine Ratio 24.8 (10-20); Bilirubin Direct 0.1 mg/dl (0-0.2); Bilirubin,Total 0.7 mg/dl (0.2-1); Calcium 8.5 mg/dl (8.5-10.1); Creatinine Clr Calc Pharmacy 155.7 ml/min; Est GFR (African American) 117.2 ml/min; Est GFR (Non-African American) 101.1 ml/min; Potassium 3.8 mmol/L (3.5-5.1)
--- NOTE | 2021-08-15 10:07 | Cardiology Consultation ---
Date of Consultation August 15, 2021 Assessment & Plan (1) Syncope: (2) AV block, Mobitz 1: (3) Bradycardia: (4) HTN (hypertension): (5) Dyslipidemia: (6) DM type 2 (diabetes mellitus, type 2): (7) Family history of ischemic heart disease: (8) Left carotid bruit: (9) Heart block AV third degree: 61-year-old male with multiple cardiac risk factors (hypertension, dyslipidemia, type 2 diabetes mellitus, obesity, family history) admitted for further evaluation and treatment of dizziness spells as well as an episode of syncope raising concern for a Pelayo-Duran type event. EKG and telemetry monitoring with sinus with a first-degree AV block, intermittent second-degree type II A-V block, and ? transient third-degree AV block. Troponin negative; resting echocardiogram with normal systolic function, without wall motion abnormality. Maintain NPO status Maintain telemetry ? Diagnostic cardiac catheterization today (? RCA disease) ? Permanent pacemaker implantation 08/16/2021 Bilateral carotid duplex, Re: Left carotid bruit Serum AMALIA level Discontinue supplements/herbals Further recommendations pending evaluation by Dr. Kang as well as patient's ongoing hospitalization History of Present Illness Reason for Consultation: Abnormal EKG, syncope. Requesting Physician: Oconefransisco Attending Physician: Itz History of Present Illness Mr. Estrada Alvarez is a very pleasant 61-year-old male who was admitted to [facility] on 08/14/2021 after experiencing dizziness spells over the last 3 weeks. This past he experienced a episode of syncope while filling a crockpot at [facility]. The episodes occur randomly, while seated, mostly with positional change. Interestingly, he notes that the use of his albuterol inhaler seemed to help when he was having an episode. No tongue biting. No incontinence. Notes trouble focusing. Notes that his head feels foggy. Notes one episode while in a tree stand where "the ground kept coming up to meet me," needing to brace himself against the tree. After returning from [facility] he was evaluated by Urgent Care and needing to grab the hand glycerin supervisor station to keep from falling. EKG at urgent care revealed sinus rhythm at 75 bpm with a first-degree AV block and a QTC of 464 ms. Due to symptoms as well as abnormal auscultation, the patient was referred to the ER. EKG on presentation revealing sinus rhythm with second-degree AV block, incomplete left bundle branch block. QTc was 409 ms. Continuous telemetry monitoring has revealed what appears to be episodes of intermittent third-degree AV block. Glucose was 149. BUN was minimally elevated at 22. Potassium was normal at 4.1. TSH was normal. Troponin was less than 0.015. Lyme was negative. Covid testing was negative. Calcium was normal at 9.0. White blood cell count normal. H&H were normal at 14.5 and 43.9. Continuous telemetry monitoring reveals sinus with a first-degree AV block, second-degree type I, and ? brief episodes of third-degree AV block. August 15, 2021 TTE Interpretation Summary ([facility], Dr. Kang): Moderate concentric LVH. Normal LV wall motion. Normal LV systolic function. Ejection fraction 55 to 60%. Trileaflet aortic valve with moderate sclerosis, without significant stenosis. Moderate mitral annular calcification. No significant mitral regurgitation. No mitral stenosis. Grade 2 diastolic dysfunction. Patient denies prior cardiac history. He specifically denies history of arrhythmia, heart murmur, rheumatic fever, scarlet fever, history of CAD/NJ/CHF. Past Medical and Surgical History: Hypertension Dyslipidemia Type 2 diabetes mellitus Hepatic steatosis Erectile dysfunction Obesity Sleep apnea Nephrolithiasis Right knee surgery, meniscus tear and repair, right knee replacement Right ACL tear and repair Lasik surgery Lithotripsy Family History: Father had an [place] at 39, dying at 64 with lymphoma. Mother with CAD, type 2 diabetes mellitus. She in her 80s. Brother with kidney trouble. Sister without cardiac issues. Social History: No cigarettes. Patient chews 1 can/year during hunting season. Alcohol: 6-10 beers per week. No illegal drug use. 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 Complete Review of Systems: Constitutional: No change in weight. No fevers. No chills. No night sweats. No rash. No known tick bites. HEENT: See above. No amaurosis fugax. Pulmonary: + Sleep apnea. No history of PE. Cardiac: GI/Abd: No dysphagia, pain, melana or hematochezia. No kidney problems. Vascular: No claudication. Hematologic: No coagulation disorder, anemia, or abnormal bleeding. Musculoskeletal: Arthritis. Skin: Negative. Neurologic: No history of TIA or CVA. No seizure disorder. Male : See above. Endocrine: +DM. Complete Review of Systems is as stated above, negative, or noncontributory. Allergies Allergy/AdvReac Type Severity Reaction Status Date / Time No Known Allergies Allergy Unknown NKA Verified 08/14/21 20:07 Home Medications Medication Instructions Recorded Confirmed Type omega-3 fatty acids 1,500 mg PO HS #0 03/05/09 08/14/21 History GLUCOSAMINE-VITAMIN D (GLUCOSAMINE 1 tabs PO BID #0 04/05/15 08/14/21 History PLUS VITAMIN) GYMNEMA SYLVESTRIS LEAF (BULK) 400 mg PO BID #0 04/05/15 08/14/21 History (GYMNEMA SYLVESTRIS LEAF) chromium picolinate 200 mcg tablet 200 mcg PO QAM #0 04/05/15 08/14/21 History cinnamon bark 500 mg capsule 1,000 mg PO BID #0 04/05/15 08/14/21 History (Cinnamon) garlic 1,000 mg capsule 1,000 mg PO HS #0 04/05/15 08/14/21 History hawthorn berrios 565 mg capsule 565 mg PO BID #0 04/05/15 08/14/21 History milk thistle 500 mg capsule 500 mg PO QAM #0 04/05/15 08/14/21 History prasterone (dhea) 50 mg tablet 50 mg PO PM #0 04/05/15 08/14/21 History GINSENG (TELUGU PANAX GINSENG) 100 mg PO BID #0 04/21/15 08/14/21 History ascorbic acid (vitamin C) 1,000 mg 1 g PO HS #0 05/22/17 08/14/21 History tablet (Vitamin C) fluticasone propionate 50 2 spray INTRANASAL BID #0 05/22/17 08/14/21 History mcg/actuation nasal spray,suspension ginkgo biloba 500 mg capsule 0 mg PO QAM #0 05/22/17 08/14/21 History hydrochlorothiazide 50 mg tablet 50 mg PO QAM #0 tab 05/22/17 08/14/21 History insulin lispro 200 unit/mL (3 mL) 150 unit SUBCUT ACHS #0 05/22/17 08/14/21 History subcutaneous pen (Humalog KwikPen U-200 Insulin) vitamin E 400 unit capsule 400 unit PO BID #0 05/22/17 08/14/21 History albuterol sulfate 90 mcg/actuation 2 puff INHALATION Q4H PRN 08/14/21 08/14/21 History aerosol inhaler (ProAir HFA) nabil root extract 300 mg 300 mg PO QAM 08/14/21 08/14/21 History capsule aspirin 325 mg tablet 325 mg PO PM 08/14/21 08/14/21 History atorvastatin 80 mg tablet 80 mg PO PM 08/14/21 08/14/21 History azelastine 137 mcg (0.1 %) nasal 2 spray INTRANASAL BID 08/14/21 08/14/21 History spray aerosol cholecalciferol (vitamin D3) 50 50 mcg PO PM 08/14/21 08/14/21 History mcg (2,000 unit) capsule cyanocobalamin (vitamin B-12) 1,000 mcg PO QAM 08/14/21 08/14/21 History 1,000 mcg tablet (Vitamin B-12) dulaglutide 1.5 mg/0.5 mL 1.5 mg SUBCUT WK 08/14/21 08/14/21 History subcutaneous pen injector (Trulicity) empagliflozin 25 mg tablet 25 mg PO QAM 08/14/21 08/14/21 History (Jardiance) hydrocodone bitartrate 40 mg 0 mg PO ONCE 08/14/21 08/14/21 History tablet,crush resist,extended rel. 24hr insulin glargine 100 unit/mL (3 65 - 70 unit SUBCUT AMPM 08/14/21 08/14/21 History mL) subcutaneous pen (Lantus Solostar U-100 Insulin) ipratropium bromide 21 mcg (0.03 2 spray INTRANASAL TID PRN 08/14/21 08/14/21 History %) nasal spray loratadine 10 mg tablet 10 mg PO QAM 08/14/21 08/14/21 History losartan 100 mg tablet 100 mg PO QAM 08/14/21 08/14/21 History metformin 1,000 mg tablet 1,000 mg PO BIDM 08/14/21 08/14/21 History multivitamin 1 tab PO PM 08/14/21 08/14/21 History potassium citrate 10 mEq (1,080 20 meq PO TID 08/14/21 08/14/21 History mg) tablet,extended release sildenafil 100 mg tablet (Viagra) 100 mg PO DIRECTED PRN MDD 1 08/14/21 08/14/21 History dose/24h turmeric 400 mg capsule 400 mg PO QDL 08/14/21 08/14/21 History zinc 100 mg tablet 100 mg PO PM 08/14/21 08/14/21 History Patient History Medical History DM type 2 (diabetes mellitus, type 2) Dyslipidemia HTN (hypertension) Sleep apnea Social History Smoking Status: Former smoker Second Hand Exposure: No; Do You Dip or Chew Tobacco: No; Tobacco Cessation Education Requested by Patient: No Hx Alcohol Use: Yes Alcohol type: beer, wine and hard liquor Hx Substance Use: No Preferred Language: Croatian Communication Ability: Effective Crop Duster Required: No Beliefs That Will Affect Care: None Current Living Situation: Spouse Other Information That Helps Us Care for You: No Feels Safe at Home: Yes Safety Concerns: Feels Safe At This Time Assistive Devices: CPAP Assistive Devices Comment: at bedside Physical Exam Physical Exam: General: A&Ox3. NAD. HENT: Normocephalic. Atraumatic. Eyes: PER. Conjunctiva pink, sclera clear. Neck: Left carotid bruit. No JVD. No HJR. Heart: RRR. Soft systolic ejection murmur. No diastolic murmur. No rub. No gallop. PMI is nondisplaced. Lungs: Clear to auscultation. Abdomen: +BS. Soft. Nontender. No masses or organomegaly. Extremities: No clubbing, cyanosis, or edema. Limited neurological examination is without focal deficits. Pulses: radial=2/4, posterior tibial=2/4 on the right, 1/4 on the left Results & Data ([facility]) Vital Signs (Past 12 Hours) Vital Signs Temp Pulse Pulse Resp BP Pulse Ox Pulse Ox 08/15/21 07:53 60 08/15/21 07:24 36.3 C L 63 18 167/80 H 94 08/15/21 03:42 36.8 C 63 16 193/82 H 95 08/15/21 00:01 36.5 C 67 16 182/82 H 94 08/15/21 00:00 68 08/14/21 23:42 179/95 H 94 Laboratory Results Laboratory Results - last 24 hr 08/14/21 08/14/21 08/14/21 17:42 17:42 17:42 WBC 7.48 RBC 4.65 L Hgb 14.7 Hct 44.2 MCV 95.1 MCH 31.6 MCHC 33.3 RDW Std Deviation 48.2 H RDW Coeff of Lars 14.0 Plt Count 186 MPV 10.3 Immature Gran % (Auto) 0.4 Neut % (Auto) 64.8 Lymph % (Auto) 26.2 [place] % (Auto) 6.1 Eos % (Auto) 2.4 Baso % (Auto) 0.1 Neut # (Auto) 4.84 Lymph # (Auto) 1.96 [place] # (Auto) 0.46 Eos # (Auto) 0.18 Baso # (Auto) 0.01 Immature Gran # (Auto) 0.03 H Sodium 140 Potassium 4.1 Chloride 103 Carbon Dioxide 28 Anion Gap 9.0 BUN 22 H Creatinine 1.09 Est Cr Clr Drug Dosing 100.4 Est GFR ( Amer) 83.9 Est GFR (Non-Af Amer) 72.4 BUN/Creatinine Ratio 20.6 H Glucose 149 H POC Glucose Calcium 9.0 Magnesium 1.8 Total Bilirubin 0.3 Direct Bilirubin AST 62 H ALT 85 H Alkaline Phosphatase 48 Troponin I < 0.015 NT-Pro-B Natriuret Pep 424 Total Protein 7.2 Albumin 3.1 L Globulin 4.1 H Albumin/Globulin Ratio 0.8 L TSH 3.310 Specimen Hemolysis Urine Color Yellow Urine Appearance Clear Urine pH 7.5 Ur Specific [place] 1.022 Urine Protein Negative Urine Glucose (UA) 3+ H Urine Ketones Negative Urine Blood Negative Urine Nitrite Negative Urine Bilirubin Negative Urine Urobilinogen Negative Ur Leukocyte Esterase Negative Anaplasma Smear See Comment Babesia Smear See Comment Babesia microti DNA PCR Lyme Disease IgG Ab Lyme Disease IgM Ab SARS-CoV-2, RNA, NAAT 08/14/21 08/14/21 08/14/21 17:42 17:42 19:29 WBC RBC Hgb Hct MCV MCH MCHC RDW Std Deviation RDW Coeff of Lars Plt Count MPV Immature Gran % (Auto) Neut % (Auto) Lymph % (Auto) [place] % (Auto) Eos % (Auto) Baso % (Auto) Neut # (Auto) Lymph # (Auto) [place] # (Auto) Eos # (Auto) Baso # (Auto) Immature Gran # (Auto) Sodium Potassium Chloride Carbon Dioxide Anion Gap BUN Creatinine Est Cr Clr Drug Dosing Est GFR ( Amer) Est GFR (Non-Af Amer) BUN/Creatinine Ratio Glucose POC Glucose Calcium Magnesium Total Bilirubin Direct Bilirubin AST ALT Alkaline Phosphatase Troponin I NT-Pro-B Natriuret Pep Total Protein Albumin Globulin Albumin/Globulin Ratio TSH Specimen Hemolysis Urine Color Urine Appearance Urine pH Ur Specific [place] Urine Protein Urine Glucose (UA) Urine Ketones Urine Blood Urine Nitrite Urine Bilirubin Urine Urobilinogen Ur Leukocyte Esterase Anaplasma Smear Babesia Smear Babesia microti DNA PCR Pending Lyme Disease IgG Ab Negative Lyme Disease IgM Ab Negative SARS-CoV-2, RNA, NAAT NEGATIVE 08/15/21 08/15/21 08/15/21 00:04 07:14 08:15 WBC 5.92 RBC 4.64 L Hgb 14.5 Hct 43.9 MCV 94.6 MCH 31.3 MCHC 33.0 RDW Std Deviation 48.6 H RDW Coeff of Lars 14.2 Plt Count 184 MPV 9.7 Immature Gran % (Auto) 0.3 Neut % (Auto) 63.6 Lymph % (Auto) 24.8 [place] % (Auto) 7.6 Eos % (Auto) 3.4 Baso % (Auto) 0.3 Neut # (Auto) 3.76 Lymph # (Auto) 1.47 [place] # (Auto) 0.45 Eos # (Auto) 0.20 Baso # (Auto) 0.02 Immature Gran # (Auto) 0.02 Sodium Potassium Chloride Carbon Dioxide Anion Gap BUN Creatinine Est Cr Clr Drug Dosing Est GFR ( Amer) Est GFR (Non-Af Amer) BUN/Creatinine Ratio Glucose POC Glucose 117 H 109 H Calcium Magnesium Total Bilirubin Direct Bilirubin AST ALT Alkaline Phosphatase Troponin I NT-Pro-B Natriuret Pep Total Protein Albumin Globulin Albumin/Globulin Ratio TSH Specimen Hemolysis Urine Color Urine Appearance Urine pH Ur Specific [place] Urine Protein Urine Glucose (UA) Urine Ketones Urine Blood Urine Nitrite Urine Bilirubin Urine Urobilinogen Ur Leukocyte Esterase Anaplasma Smear Babesia Smear Babesia microti DNA PCR Lyme Disease IgG Ab Lyme Disease IgM Ab SARS-CoV-2, RNA, NAAT 08/15/21 08:15 WBC RBC Hgb Hct MCV MCH MCHC RDW Std Deviation RDW Coeff of Lars Plt Count MPV Immature Gran % (Auto) Neut % (Auto) Lymph % (Auto) [place] % (Auto) Eos % (Auto) Baso % (Auto) Neut # (Auto) Lymph # (Auto) [place] # (Auto) Eos # (Auto) Baso # (Auto) Immature Gran # (Auto) Sodium 138 Potassium 3.8 Chloride 105 Carbon Dioxide 24 Anion Gap 10.0 BUN 17 Creatinine 0.70 D Est Cr Clr Drug Dosing 155.7 Est GFR ( Amer) 117.2 Est GFR (Non-Af Amer) 101.1 BUN/Creatinine Ratio 24.8 H Glucose 121 H POC Glucose Calcium 8.5 Magnesium Total Bilirubin 0.7 Direct Bilirubin 0.1 AST 55 H ALT 77 Alkaline Phosphatase 44 L Troponin I NT-Pro-B Natriuret Pep Total Protein 7.0 Albumin 3.0 L Globulin Albumin/Globulin Ratio TSH Specimen Hemolysis Urine Color Urine Appearance Urine pH Ur Specific [place] Urine Protein Urine Glucose (UA) Urine Ketones Urine Blood Urine Nitrite Urine Bilirubin Urine Urobilinogen Ur Leukocyte Esterase Anaplasma Smear Babesia Smear Babesia microti DNA PCR Lyme Disease IgG Ab Lyme Disease IgM Ab SARS-CoV-2, RNA, NAAT Addendum August 15, 2021 12:25 Attending cardiology addendum: I personally performed a history and physical exam. Agree with Arlene Ayala's findings and plans with additions as noted. S: feeling well now. [place].Symptoms x 3 weeks. SR on telemetry at present. Exam: CV: regular, no murmurs. Left carotid bruit Impression: Intermitted high grade AV block Plan: Await carotid duplex results. Likely for cardiac catheterization to definitively exclude CAD (Question RCA ischemia contributing to conduction disease). Lyme screen negative. Will discuss with EP.
--- NOTE | 2021-08-15 12:54 | Ultrasound Report ---
CAROTID ARTERY ULTRASOUND CLINICAL HISTORY: left carotid bruit. dizziness COMPARISON STUDY: None. TECHNIQUE: Real-time, grayscale, and color Doppler sonography of the carotid and vertebral arteries w as performed. Images were viewed in the transverse and longitudinal planes. FINDINGS: There is mild to moderate atherosclerotic plaque. Velocity measurements are listed below. COMMON CAROTID PEAK SYSTOLIC VELOCITY (CM/S): RIGHT 61 LEFT 71 ICA PEAK SYSTOLIC VELOCITY (CM/S): RIGHT 67 LEFT 76 Systolic ratios between the internal to common carotid arteries were normal. Antegrade flow is seen in the vertebral arteries. The external carotid arteries are patent. Blood pressure in the right arm measured 150/80. Blood pressure in the left arm measured 160/80. IMPRESSION: 1. Mild to moderate atherosclerotic plaque without evidence for a hemodynamically significant stenosi s. 2. Elevated blood pressure, as above. ACT 112: Negative or not required by law. Electronically signed by: Donavon Montenegro M.D. 08/15/2021 12:52 PM
[2021-08-15] MEDS: ACETAMINOPHEN 325 MG TAB PO PRN ×2 (14:15→21:56)
--- NOTE | 2021-08-15 15:52 | Electrocardiogram Report ---
Test Reason : Blood Pressure : / mmHG Vent. Rate : 055 BPM Atrial Rate : 083 BPM P-R Int : 000 ms QRS Dur : 106 ms QT Int : 428 ms P-R-T Axes : 061 044 039 degrees QTc Int : 409 ms Sinus rhythm with 2nd degree A-V block (Mobitz I) Incomplete left bundle block Abnormal ECG When compared with ECG of 22-APR-2015 13:33, Sinus rhythm is now with 2nd degree A-V block (Mobitz I) Incomplete left bundle block is now Present Confirmed by Ravi Rodriguez ([id number]) on 08/15/2021 3:51:45 PM Referred By: REFERRED SELF Confirmed By:Ravi Rodriguez
--- NOTE | 2021-08-15 15:58 | Hospitalist Progress Note ---
Date of Service August 15, 2021 Assessment & Plan (1) Syncope: Plan: 61-year-old gentleman with PMH of LUX on CPAP, DM 2 insulin requiring, HTN, HLD, obesity and fatty liver disease presented 08/14 to our ED with complaint of syncope. 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 He did not hit his head. During that event, he felt very hot but denies any arrhythmia/sweating/seizure/other abnormal activities -tongue biting, postictal confusion. He is being managed for the following: #. Syncope Patient had blacked out for a few moments on 08/11 ORTHOPAEDIC TECHNOLOGIST Patient was seen at urgent care on the day of arrival where EKG showed sinus rhythm with first-degree AV block as per documentation Patient admitted to telemetry, cardiology consulted Orthostatic vitals negative EKG at presentation: Sinus rhythm with second-degree AV block 08/15 ECHO: Ejection fraction 55 to 60%, left ventricular wall motion normal, left ventricular systolic function normal, grade II diastolic dysfunction. Cardiology on board: Carotid duplex, Cardiac cath today, consideration of permanent pacer placement likely tomorrow with EP, serum AMALIA level, discontinue supplements/herbals. N.p.o. after midnight in anticipation of any procedure. Monitor electrolytes and replete as appropriate. c/w telemetry monitoring. fall precaution. #. Chronic medical conditions: HTN, HLD, DM2 insulin requiring, fatty liver disease Resume home meds as appropriate For DM2, on sliding scale, A1c of 7.5 in June 2021. DVT prophylaxis per Lovenox subcu Full code Text document was generated using [employer] voice recognition software. It may contain grammatical or spelling errors. Kindly contact undersigned for clarification of any documentation item in question. Admission and Anticipated Discharge Date Admission Date: August 15, 2021 Subjective Patient was lying in bed, NAD, on room air, no new acute events overnight. Patient was n.p.o. in the morning for possible cardiac procedure today, discussed with cardiology, likely consideration of pacemaker placement tomorrow, n.p.o. from midnight. Patient reports occasional dizziness which has been better while in hospital. Patient denies headache/fever/chills/sore throat/chest pain/palpitation/other review of symptoms. Physical Exam Physical Exam: GENERAL: Alert and oriented x3. NAD, on RA. HEENT: No pallor, no icterus. Pupils equal, round and reactive to light. Oral mucosa moist. NECK: No JVD, no neck masses. HEART: S1 and S2 heard. Regular rate and rhythm. No murmur, no gallop. RESPIRATORY SYSTEM: Normal AP diameter. No accessory muscle use. No wheezing, no crackles. ABDOMEN: Soft, bowel sounds present, nontender, no distention. CENTRAL NERVOUS SYSTEM: No facial droop. Speech is clear. Obeys simple commands. Moves extremities. EXTREMITIES: 1+ BLE edema, no erythema seen. Results & Data Results & Data ([facility]) Vital Signs (Past 12 Hours) Vital Signs Temp Pulse Pulse Resp BP Pulse Ox 08/15/21 15:29 65 08/15/21 07:53 60 08/15/21 07:24 36.3 C L 63 18 167/80 H 94
--- NOTE | 2021-08-15 16:02 | Electrocardiogram Report ---
Test Reason : Blood Pressure : / mmHG Vent. Rate : 062 BPM Atrial Rate : 062 BPM P-R Int : 200 ms QRS Dur : 104 ms QT Int : 412 ms P-R-T Axes : 063 052 035 degrees QTc Int : 418 ms Normal sinus rhythm Normal ECG When compared with ECG of 15-AUG-2021 12:00, (unconfirmed) No significant change was found Confirmed by Ravi Rodriguez ([id number]) on 08/15/2021 4:02:14 PM Referred By: REFERRED SELF Confirmed By:Ravi Rodriguez
[2021-08-15] MEDS ORDERED: MIDAZOLAM HCL 1 MG/ML 2ML VIAL ONE (16:03)
[2021-08-15] MEDS ORDERED: niCARdipine HCL INJ 2.5 MG/ML 10 ML AMP ONE (16:03)
[2021-08-15] MEDS ORDERED: fentaNYL citrate 100 MCG/2 ML VIAL ONE (16:03)
[2021-08-15] MEDS ORDERED: HEPARIN (PORCINE) 1000 UNIT/ML 10 ML (CATH LAB USE ONLY) ONE (16:04)
[2021-08-15] MEDS ORDERED: NITROGLYCERIN/D5W 100MCG/ML 20ML SYR ONE (16:12)
--- NOTE | 2021-08-15 16:20 | Pre Anesthesia Assessment ---
Date of Service August 15, 2021 Pre Sedation Assessment Vital Signs Temp Pulse Pulse Resp BP Pulse Ox Pulse Ox 08/15/21 16:11 97.7 F 88 18 144/89 H 95 08/15/21 15:29 65 08/15/21 07:53 60 08/15/21 07:24 97.3 F L 63 18 167/80 H 94 08/15/21 03:42 98.2 F 63 16 193/82 H 95 08/15/21 00:01 97.7 F 67 16 182/82 H 94 08/15/21 00:00 68 08/14/21 23:42 179/95 H 94 Cardiovascular RRR, no murmur, no edema Respiratory normal respiratory effort, lungs clear to auscultation Pre-Sedation Airway Assessment Smoking Status: Former smoker Hx Sleep Apnea: Yes Hx Difficult Intubation: No Short, Thick Neck: No Thyromental Distance: > or= 3.5 Finger Breadths Oral Cavity: + WNL Mallampati Class: III ASA: ASA3 NPO Status Date of Last Intake of Fluids: 08/15/21 Time of Last Intake of Fluids: 08:00 Last Oral Intake of Fluids Comment: sip with meds Date of Last Intake of Solid Food: 08/14/21 Time of Last Intake of Solid Foods: 16:00 Procedure Planning Contraindications for Sedation: none Current Medications Reviewed: Yes Notes The planned sedation has been discussed with the patient. Informed Consent was obtained. I have identified the patient, determined the appropriateness of sedation and have assessed the patient immediately prior to the procedure. All medicine(s) and interventions are by my order.
--- NOTE | 2021-08-15 16:45 | Post Anesthesia Assessment ---
Date of Service August 15, 2021 Post Sedation Assessment Vital Signs Temp Pulse Pulse Resp BP Pulse Ox Pulse Ox 08/15/21 16:30 63 18 134/83 98 08/15/21 16:11 97.7 F 88 18 144/89 H 95 08/15/21 15:29 65 08/15/21 07:53 60 08/15/21 07:24 97.3 F L 63 18 167/80 H 94 08/15/21 03:42 98.2 F 63 16 193/82 H 95 08/15/21 00:01 97.7 F 67 16 182/82 H 94 08/15/21 00:00 68 08/14/21 23:42 179/95 H 94 Recovery Score Activity: Moves 4 extremities Respiration: Deep Breath/Cough Circulation: +/-20% PreAnes Value Consciousness: Fully Awake Oxygen Saturation: O2 needed for >90% Discharge Sedation Level of Care: Fast Track Phase II Post Sedation Plan On clinical assessment, the patient appears to have tolerated the sedation without complications. Patient is recovering as anticipated. Patient will continue to be monitored by nursing and may be discharged when sedation discharge criteria are met per below protocol. Upon Completions of procedure up to 15 minutes continue every 5 minute vital signs and the P.A.R. score; then discharge to a Phase I or Fast Track to Phase II per the following guidelines: * Discharge Patient to appropriate Phase II area if PAR is 8 or greater or return to pre- procedure baseline. The post - procedure orders will be as directed. * If PAR score is less than 8 or not return to pre-procedure baseline then p atient will follow Phase I monitoring till PAR is reached for Phase II. The Phase I may be done in procedure room or may call to secure a Phase I area. * If naloxone or flumazenil are used for reversal, hold in Phase I for continued monitoring from when last reversal dose was given for a minimum of 60 minutes or longer pending the nurse and/or physician discretion of patient condition before discharge to Phase II. Please call the Sedation Physician to re-evaluate and complete post-note for discharge to Phase II area. Do NOT discharge from procedure sedation or Phase 1 until post- sedation evaluation note is complete by procedure /sedation MD Sedation Discharge Instructions to be given to the patient at discharge to home.
--- NOTE | 2021-08-15 16:59 | Cardiac Catheterization ---
[facility] Data: Manager Er Cardiac Status Clinical evaluation leading to the procedure CAD Presenation: Sx unlikely to be ischemic Anginal Classification: No Symptoms Heart Failure: No Cardiogenic Shock within 24 Hours: No Cardiac Arrest within 24 Hours: No Imaging Studies Past 6 Months: Yes Stress Studies Past 6 Months: No Diagnostic Physicians Name: Lyndon Loza MD Status: Elective Closure Device Percutaneous Entry Location: Radial Closure Device: Radial Band Recommendations: Medical Therapy and/or Counseling Intraprocedure Events Significant Disection: No Perforation: No Cardiac Cath Procedure Full Procedure Date August 15, 2021 Pre-Procedure Diagnosis Pre-Procedure Diagnosis: Arrhythmia AUC Score AUC Score: 7 Post-Procedure Diagnosis Post-Procedure Diagnosis: Severe CAD and Elevated Intracardiac Pressures Procedure(s) Performed Procedure(s) Performed: Coronary Angiography and Left Heart Cath Play Reader Lyndon Loza MD Manager Service Desk(s) Vinicio Estimated Blood Loss Estimated Blood Loss: 15 Medication(s) Medication(s): Fentanyl, Heparin, Lidocaine 1%, Nicardipine, Nitroglycerin and Versed Summary of Findings Indication: Presyncope, advanced heart block Access: 6 Fr right radial artery Catheters: [place] Findings: LM -Short, no significant disease LAD -medium caliber, no significant disease. Extends to apex. Circumflex -medium caliber, mid segment luminal irregularities extending into OM 2 RCA -large caliber vessel dominant, no significant disease. Small to medium caliber right PDA angulated proximally with 70-80% proximal stenosis. LVEDP -24 Arterial Closure: TR band Summary: 1. Severe branch vessel CAD -70 to 80% proximal stenosis in small to medium caliber right PDA 2. No significant main vessel CAD 3. Elevated intracardiac filling pressure Recommendations: Pacemaker per Dr. Kang/Magaly for symptomatic high-grade heart block Medical management of branch vessel CAD. Hemodynamics Rest Ao:: 157/82/113 Final Ao: 160/72/105 LV: 158/24 Recommendations Recommendations: Medical Therapy and/or Counseling Specimens Specimens: None Radiation Exposure (mGy) 1314 Contrast (mls) 60 Fluids (cc crystalloids) Fluids (cc crystalloids): 90 Drains Drains: None Anesthesia Moderate 8637-7003 Procedural Complication(s) None Disposition PCU I attest to the content of the Intraoperative Record and any orders documented therein. Any exceptions are noted below. [facility] Card Cath Procedure Codes Cardiac Catheterization Procedure 1: Cardiovascular Cath Procedures: 49677 Coronaries and LHC (+/-LV) Moderate Sedation Procedure 1: Sedation/Anesthesia: 66234 Mod Sedation by the same physician;Init15 Min Child Age 5 & Up PG Care Time/CCT Total # of Minutes Spent Total Time Spent with Patient: Total time spent is greater than 50% in coordination of care (as documented) at patient's floor/unit and/or counseling patient:
[2021-08-15] MEDS ORDERED: SODIUM CHLORIDE 0.9% 1000ML 1,000 ML IV SCH (17:00)
--- NOTE | 2021-08-15 17:04 | Communication Note ---
Date of Service: August 15, 2021 Cardiac catheterization films reviewed with Dr Loza , stenosis noted of small branch of R PDA, but does not account for findings of syncope. Manage CAD medically. Case reviewed by phone with Dr Mckenzie of EP. Advance diet now, NPO after Midnight, plan for dual chamber pacemaker in am.
[2021-08-15] MEDS: ATORVASTATIN 40 MG TAB PO SCH (20:11)
[2021-08-15] MEDS ORDERED: ASPIRIN 325 MG ECTAB PO SCH (21:00)
[2021-08-16 07:24] LABS: Hematocrit (blood only) 46.9 % (42-52); Hemoglobin 15.4 g/dL (14.0-18.0); Mean Corpuscular Hemoglobin 31.3 pg (25-34); Mean Corpuscular Hgb Conc 32.8 g/dL (32-36); Mean Corpuscular Volume 95.3 fL (80-100); Mean Platelet Volume 9.6 fL (7.4-10.4); Platelet Count 201 K/uL (130-400); RDW Coefficient of Variation 14.1 % (11.5-14.5); RDW Standard Deviation 49.4 fL (36.4-46.3); Red Blood Count 4.92 M/uL (4.7-6.1); White Blood Count 5.24 K/uL (4.8-10.8)
[2021-08-16 07:56] LABS: Albumin Globulin Ratio 0.8 (0.9-2); Albumin Level 3.2 gm/dl (3.4-5.0); BUN Creatinine Ratio 20.1 (10-20); Bilirubin,Total 0.6 mg/dl (0.2-1); Creatinine Clr Calc Pharmacy 137.4 ml/min; Est GFR (African American) 112.1 ml/min; Est GFR (Non-African American) 96.7 ml/min; Globulin 4.2 gm/dl (2.5-4.0); Phosphorus 3.6 mg/dl (2.5-4.9); Total Protein 7.4 gm/dl (6.4-8.2)
[2021-08-16] MEDS: LOSARTAN POTASSIUM 50 MG TAB PO SCH (08:04)
[2021-08-16] MEDS: ENOXAPARIN INJ 40 MG/0.4 ML SYR SQ SCH (08:04)
[2021-08-16] MEDS: MULTIVITAMIN TAB PO SCH (08:04)
[2021-08-16] MEDS: ASPIRIN 81 MG ECTAB PO SCH (08:04)
[2021-08-16] MEDS: CYANOCOBALAMIN 500 MCG TABLET (VITAMIN B-12) PO SCH (08:04)
[2021-08-16] MEDS: LORATADINE 10 MG TAB PO SCH (08:04)
[2021-08-16] MEDS: FLUTICASONE PROPIONATE NA SPR 16 GM BTL SCH ×2 (08:05→20:48)
[2021-08-16] MEDS: AZELASTINE HCL 0.1% NASAL 200 SPRAYS/27,400 MCG BTL SCH ×2 (08:05→20:48)
[2021-08-16] MEDS: INSULIN ASPART 100 UNITS/ML VIAL SC SCH ×4 (08:06→20:45)
[2021-08-16] MEDS: INSULIN GLARGINE SOLOSTAR 100 UNITS/ML 3 ML PEN SC SCH (08:09)
[2021-08-16 09:02] LABS: Magnesium 2.1 mg/dl (1.8-2.4)
--- NOTE | 2021-08-16 09:39 | Cardiology Progress Note ---
Date of Service August 16, 2021 Assessment & Plan (1) Syncope: (2) AV block, Mobitz 1: (3) Bradycardia: (4) HTN (hypertension): (5) Dyslipidemia: (6) DM type 2 (diabetes mellitus, type 2): (7) Family history of ischemic heart disease: (8) Left carotid bruit: (9) Heart block AV third degree: Plan: 61-year-old male admitted for evaluation and treatment of dizziness spells, following an episode of syncope that was highly suspicious for a Pelayo-Duran type event. Evaluation has revealed intermittent high degree heart block, symptomatic, without reversible cause. Symptomatic high degree heart block. For dual-chamber pacemaker implantation today by Dr. Mckenzie. ASCVD. Diagnostic cardiac catheterization performed by Dr. Loza at [facility] on August 15, 2021 revealed severe branch vessel coronary artery disease with a 70 to 80% proximal stenosis in a small to medium caliber right PDA. No significant main vessel CAD observed. Elevated intracardiac filling pressures noted. Medical management recommended for the branch vessel CAD. Continue aspirin. Continue high intensity statin therapy. Aggressive diabetic management recommended. Recommend adding low-dose carvedilol 3.125 mg twice per day post pacemaker implantation. See below as well. Nitrates contraindicated (utilizes needed sildenafil). Hypertension. Recommend consideration for the reduction in HCTZ dosing from 50 mg/day to 25 mg/day, concurrently adding amlodipine 5 mg/day. Dyslipidemia. Continue atorvastatin at 80 mg/day. Left carotid bruit. Carotid duplex on August 15, 2021 revealed mild to moderate atherosclerotic plaque without evidence for hemodynamically significant stenosis. Continue aspirin. Continue high intensity statin therapy. Follow routinely. Type 2 diabetes mellitus. As per hospitalist and PCP. Family history of ischemic heart disease. Continue risk factor and lifestyle modification as detailed above. Admission and Anticipated Discharge Date Admission Date: August 15, 2021 Supervising Physician Co-Signing Physician Notes Supervising Physician Attestation: I have personally performed a history and physical examination on the patient. I agree with the physician physical therapy assistant's findings and plan as documented with the following additions. Subjective: Patient seen in general cardiology follow-up, status post pacemaker today. Case discussed with Dr. Mckenzie, patient tolerated pacemaker procedure well with placement of a right atrial and right ventricular lead in the high interventricu lar septum. At the time my assessment he was back in his room, telemetry unit, 238-2. He was awake and conversant. Pain is well controlled. Sinus rhythm in the 60s noted. Exam: Left infraclavicular pacemaker pocket clean dry and intact Data: As previously noted, carotid duplex revealed mild plaque, no obstructive stenosis * Clopidogrel DC's (on it for h/o CVA) in case spine surgery necessary * Remains on ASA 81 mg Estrada Kang, DO Subjective Patient seen and examined. Chart, medications, and telemetry reviewed. Status post carotid duplex as well as diagnostic cardiac catheterization via right radial artery on 08/15/2021. Feeling okay. Notes being happy that we have a definitive plan No reported chest pain, palpitations, unusual shortness of breath, cough, chest congestion, orthopnea, PND, edema, dizziness, near syncope, syncope, fevers, or chills. Review of Systems Review of Systems: Complete review of systems is otherwise as stated above, negative, or noncontributory. Physical Exam Physical Exam: General: A&Ox3. NAD. HENT: Normocephalic. Atraumatic. Eyes: PER. Conjunctiva pink, sclera clear. Neck: Left carotid bruit. No JVD. No HJR. Heart: RRR. Soft systolic ejection murmur. No diastolic murmur. No rub. No gallop. PMI is nondisplaced. Lungs: Clear to auscultation. Abdomen: +BS. Soft. Nontender. No masses or organomegaly. Extremities: No clubbing, cyanosis, or edema. Limited neurological examination is without focal deficits. Pulses: radial=2/4, posterior tibial=2/4 on the right, 1/4 on the left Results & Data ([facility]) Vital Signs (Past 12 Hours) Vital Signs Temp Pulse Pulse Resp BP Pulse Ox Pulse Ox 08/16/21 07:44 36.7 C 65 18 160/88 H 93 08/16/21 03:24 36.3 C L 60 16 154/73 H 94 08/16/21 02:03 57 L 08/15/21 23:42 95 08/15/21 22:44 36.7 C 60 16 144/74 H 96 08/15/21 22:29 37.1 C 60 15 137/81 95 08/15/21 21:44 38.0 C H 65 15 131/80 94 Laboratory Results Laboratory Results - last 24 hr 08/15/21 08/15/21 08/15/21 11:57 12:16 17:39 WBC RBC Hgb Hct MCV MCH MCHC RDW Std Deviation RDW Coeff of Lars Plt Count MPV Sodium Potassium Chloride Carbon Dioxide Anion Gap BUN Creatinine Est Cr Clr Drug Dosing Est GFR ( Amer) Est GFR (Non-Af Amer) BUN/Creatinine Ratio Glucose POC Glucose 97 78 Calcium Phosphorus Magnesium Total Bilirubin AST ALT Alkaline Phosphatase Total Protein Albumin Globulin Albumin/Globulin Ratio Angiotensin Convert Enz Pending 08/15/21 08/16/21 08/16/21 19:54 07:00 07:00 WBC 5.24 RBC 4.92 Hgb 15.4 Hct 46.9 MCV 95.3 MCH 31.3 MCHC 32.8 RDW Std Deviation 49.4 H RDW Coeff of Lars 14.1 Plt Count 201 MPV 9.6 Sodium 138 Potassium Chloride 106 Carbon Dioxide 27 Anion Gap 5.0 BUN 16 Creatinine 0.78 Est Cr Clr Drug Dosing 137.4 Est GFR ( Amer) 112.1 Est GFR (Non-Af Amer) 96.7 BUN/Creatinine Ratio 20.1 H Glucose 108 H POC Glucose 156 H Calcium 9.0 Phosphorus 3.6 Magnesium Total Bilirubin 0.6 AST ALT 86 H Alkaline Phosphatase 50 Total Protein 7.4 Albumin 3.2 L Globulin 4.2 H Albumin/Globulin Ratio 0.8 L Angiotensin Convert Enz 08/16/21 08/16/21 07:33 08:25 WBC RBC Hgb Hct MCV MCH MCHC RDW Std Deviation RDW Coeff of Lars Plt Count MPV Sodium Potassium 4.0 Chloride Carbon Dioxide Anion Gap BUN Creatinine Est Cr Clr Drug Dosing Est GFR ( Amer) Est GFR (Non-Af Amer) BUN/Creatinine Ratio Glucose POC Glucose 107 H Calcium Phosphorus Magnesium 2.1 Total Bilirubin AST 49 H ALT Alkaline Phosphatase Total Protein Albumin Globulin Albumin/Globulin Ratio Angiotensin Convert Enz Diagnostic Findings Current continuous telemetry monitoring reveals sinus in the 60s. Patient bradycardic into the 50s overnight. Last episode of second-degree heart block was around 11:55 AM on 08/15/2021. August 15, 2021 TTE Interpretation Summary ([facility], Dr. Kang): Moderate concentric LVH. Normal LV wall motion. Normal LV systolic function. Ejection fraction 55 to 60%. Trileaflet aortic valve with moderate sclerosis, without significant stenosis. Moderate mitral annular calcification. No significant mitral regurgitation. No mitral stenosis. Grade 2 diastolic dysfunction.
--- NOTE | 2021-08-16 11:26 | History & Physical Bridge Note ---
Date of Service August 16, 2021 History & Physical Bridge Note I have examined the patient, reviewed the History & Physical and in the interval since the performance of the History & Physical I have noted the following changes of clinical significance: pt with intermittent CHB for a dual chamber pacemaker; discussed the procedure and potential risks and consents signed.
--- NOTE | 2021-08-16 11:27 | Pre Anesthesia Assessment ---
Date of Service August 16, 2021 Pre Sedation Assessment Vital Signs Temp Pulse Pulse Resp BP BP Pulse Ox 08/16/21 11:15 63 18 171/81 H 94 08/16/21 10:55 36.6 C 64 18 172/81 H 96 08/16/21 08:44 53 L 08/16/21 07:44 36.7 C 65 18 160/88 H 93 08/16/21 03:24 36.3 C L 60 16 154/73 H 94 08/16/21 02:03 57 L 08/15/21 23:42 08/15/21 22:44 36.7 C 60 16 144/74 H 96 08/15/21 22:29 37.1 C 60 15 137/81 95 08/15/21 21:44 38.0 C H 65 15 131/80 94 08/15/21 20:44 38.0 C H 66 15 135/79 93 08/15/21 19:50 37.2 C 73 16 164/81 H 92 08/15/21 18:01 61 18 157/88 H 96 08/15/21 17:30 62 18 153/79 H 94 08/15/21 17:08 36.6 C 64 18 160/80 H 92 08/15/21 16:30 63 18 134/83 98 08/15/21 16:11 36.5 C 88 18 144/89 H 95 08/15/21 15:29 65 Pulse Ox 08/16/21 11:15 08/16/21 10:55 08/16/21 08:44 08/16/21 07:44 08/16/21 03:24 08/16/21 02:03 08/15/21 23:42 95 08/15/21 22:44 08/15/21 22:29 08/15/21 21:44 08/15/21 20:44 08/15/21 19:50 08/15/21 18:01 08/15/21 17:30 08/15/21 17:08 08/15/21 16:30 08/15/21 16:11 08/15/21 15:29 Cardiovascular + bradycardic Respiratory normal respiratory effort, lungs clear to auscultation Pre-Sedation Airway Assessment Smoking Status: Former smoker Hx Sleep Apnea: Yes Hx Difficult Intubation: No Short, Thick Neck: No Thyromental Distance: > or= 3.5 Finger Breadths Oral Cavity: + WNL Mallampati Class: III ASA: ASA3 NPO Status Date of Last Intake of Fluids: 08/16/21 Time of Last Intake of Fluids: 07:30 Last Oral Intake of Fluids Comment: sip with meds Date of Last Intake of Solid Food: 08/15/21 Time of Last Intake of Solid Foods: 16:00 Procedure Planning Contraindications for Sedation: none Current Medications Reviewed: Yes Notes The planned sedation has been discussed with the patient. Informed Consent was obtained. I have identified the patient, determined the appropriateness of sedation and have assessed the patient immediately prior to the procedure. All medicine(s) and interventions are by my order.
[2021-08-16] MEDS ORDERED: LIDOCAINE 1% LOCAL 20 ML VIAL ONE (11:33)
[2021-08-16] MEDS ORDERED: MIDAZOLAM HCL 5 MG/ML 1 ML VIAL ONE (11:34)
[2021-08-16] MEDS ORDERED: BUPIVACAINE 0.25% 30 ML VIAL ONE (11:34)
[2021-08-16] MEDS ORDERED: WATER, STERILE FOR INJ 10 ML VIAL ONE (11:34)
[2021-08-16] MEDS ORDERED: VANCOMYCIN HCL 1000MG/20ML VIAL ONE (11:34)
[2021-08-16] MEDS ORDERED: fentaNYL citrate 100 MCG/2 ML VIAL ONE ×2 (11:34→13:33)
[2021-08-16] MEDS ORDERED: MIDAZOLAM HCL 1 MG/ML 2ML VIAL ONE (13:33)
--- NOTE | 2021-08-16 13:55 | Post Anesthesia Assessment ---
Date of Service August 16, 2021 Post Sedation Assessment Vital Signs Temp Pulse Pulse Resp BP BP Pulse Ox 08/16/21 11:15 63 18 171/81 H 94 08/16/21 10:55 36.6 C 64 18 172/81 H 96 08/16/21 08:44 53 L 08/16/21 07:44 36.7 C 65 18 160/88 H 93 08/16/21 03:24 36.3 C L 60 16 154/73 H 94 08/16/21 02:03 57 L 08/15/21 23:42 08/15/21 22:44 36.7 C 60 16 144/74 H 96 08/15/21 22:29 37.1 C 60 15 137/81 95 08/15/21 21:44 38.0 C H 65 15 131/80 94 08/15/21 20:44 38.0 C H 66 15 135/79 93 08/15/21 19:50 37.2 C 73 16 164/81 H 92 08/15/21 18:01 61 18 157/88 H 96 08/15/21 17:30 62 18 153/79 H 94 08/15/21 17:08 36.6 C 64 18 160/80 H 92 08/15/21 16:30 63 18 134/83 98 08/15/21 16:11 36.5 C 88 18 144/89 H 95 08/15/21 15:29 65 Pulse Ox 08/16/21 11:15 08/16/21 10:55 08/16/21 08:44 08/16/21 07:44 08/16/21 03:24 08/16/21 02:03 08/15/21 23:42 95 08/15/21 22:44 08/15/21 22:29 08/15/21 21:44 08/15/21 20:44 08/15/21 19:50 08/15/21 18:01 08/15/21 17:30 08/15/21 17:08 08/15/21 16:30 08/15/21 16:11 08/15/21 15:29 Recovery Score Activity: Moves 4 extremities Respiration: Deep Breath/Cough Circulation: +/-20% PreAnes Value Consciousness: Fully Awake Oxygen Saturation: O2 needed for >90% Discharge Sedation Level of Care: Fast Track Phase II Post Sedation Plan On clinical assessment, the patient appears to have tolerated the sedation without complications. Patient is recovering as anticipated. Patient will continue to be monitored by nursing and may be discharged when sedation discharge criteria are met per below protocol. Upon Completions of procedure up to 15 minutes continue every 5 minute vital signs and the P.A.R. score; then discharge to a Phase I or Fast Track to Phase II per the following guidelines: * Discharge Patient to appropriate Phase II area if PAR is 8 or greater or return to pre- procedure baseline. The post - procedure orders will be as directed. * If PAR score is less than 8 or not return to pre-procedure baseline then patient will follow Phase I monitoring till PAR is reached for Phase II. The Phase I may be done in procedure room or may call to secure a Phase I area. * If naloxone or flumazenil are used for reversal, hold in Phase I for continued monitoring from when last reversal dose was given for a minimum of 60 minutes or longer pending the nurse and/or physician discretion of patient condition before discharge to Phase II. Please call the Sedation Physician to re-evaluate and complete post-note for discharge to Phase II area. Do NOT discharge from procedure sedation or Phase 1 until post- sedation evaluation note is complete by procedure /sedation MD Sedation Discharge Instructions to be given to the patient at discharge to home.
--- NOTE | 2021-08-16 13:56 | Operative Report ---
Post Operative Report Pre & Post Diagnosis Intermittent CHB and syncope Operation Date: 08/15/21 16:00 <No data on this case meets the specified criteria> Operation Date: 08/16/21 11:00 <No data on this case meets the specified criteria> I identified the patient and participated in the time-out.: Yes Procedure Operation Date: 08/15/21 16:00 Actual Procedures s Cineradiography w/Routine Exam - Cody Loza MD p Cath, Left with Cors and Vent - Cody Loza MD Operation Date: 08/16/21 11:00 Actual Procedures p Pacer with A/V Leads (Dual) - Priti Mckenzie DO Surgeon Priti Mckenzie, Land Use Planner none Estimated Blood Loss 30 Findings Consistent with Post-Op Diagnosis Specimens None Description of Procedure See official report I attest to the content of the Intraoperative Record and any orders documented therein. Any exceptions are noted below.
--- NOTE | 2021-08-16 14:34 | XRay Report ---
XR chest 1V portable CLINICAL HISTORY: Status post pacemaker placement. Evaluate for pneumothorax.. COMPARISON STUDY: 08/14/2021 TECHNIQUE: 1 view of the chest FINDINGS: Single frontal view of the chest demonstrates the cardiomediastinal silhouette to be within normal li mits. Compared to the previous examination, a dual lead permanent cardiac pacer has been placed with no evidence for pneumothorax. The lungs are clear of alveolar opacities. There is no evidence for ple ural effusion. There is no evidence for vascular congestion. There is no acute osseous pathology. IMPRESSION: No acute cardiopulmonary disease. Status post pacer placement. ACT 112: Negative or not required by law. Electronically signed by: Estevan Dalton M.D. 08/16/2021 2:32 PM
--- NOTE | 2021-08-16 16:27 | Communication Note ---
Date of Service: August 16, 2021 Patient reassessed S post pacemaker. He is feeling well. Post procedure incision pain well controlled. Blood pressure trend remains high. Patient to remain in hospital overnight tonight pending further observation and optimization of his blood pressure. Add carvedilol, resume HCTZ, at 25 mg daily as compared to 50 mg daily.
--- NOTE | 2021-08-16 16:41 | Electrocardiogram Report ---
Test Reason : Blood Pressure : / mmHG Vent. Rate : 063 BPM Atrial Rate : 063 BPM P-R Int : 128 ms QRS Dur : 162 ms QT Int : 476 ms P-R-T Axes : 050 -64 093 degrees QTc Int : 487 ms Atrial-sensed ventricular-paced rhythm Abnormal ECG When compared with ECG of 15-AUG-2021 12:00, Electronic ventricular pacemaker has replaced Sinus rhythm Confirmed by Ravi Rodriguez ([id number]) on 08/16/2021 4:41:15 PM Referred By: REFERRED SELF Confirmed By:Ravi Rodriguez
[2021-08-16] MEDS ORDERED: ACETAMINOPHEN 325 MG TAB PO PRN (17:20)
--- NOTE | 2021-08-16 18:08 | Hospitalist Progress Note ---
Date of Service August 16, 2021 Assessment & Plan (1) Syncope: Plan: 61-year-old gentleman with PMH of LUX on CPAP, DM 2 insulin requiring, HTN, HLD, obesity and fatty liver disease presented 08/14 to our ED with complaint of syncope. 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 He did not hit his head. During that event, he felt very hot but denies any arrhythmia/sweating/seizure/other abnormal activities -tongue biting, postictal confusion. He is being managed for the following: #. Syncope Patient had blacked out for a few moments on 08/11 CLOTH PAINTER Patient was seen at urgent care on the day of arrival where EKG showed sinus rhythm with first-degree AV block as per documentation Patient admitted to telemetry, cardiology consulted Orthostatic vitals negative EKG at presentation: Sinus rhythm with second-degree AV block 08/15 ECHO: Ejection fraction 55 to 60%, left ventricular wall motion normal, left ventricular systolic function normal, grade II diastolic dysfunction. 08/15 cardiac cath: 70 to 80% proximal stenosis and a small to medium caliber right PDA, no significant mid vessel CAD. 08/16 status post pacer with AV leads [dual] Cardiology on board: Cardiac cath findings not proportional to the signs and symptoms of patient. Continue current medications. Monitor electrolytes and replete as appropriate. c/w telemetry monitoring. fall precaution. Patient will need follow-up with cardiology as an outpatient. Also needs follow-up with PCP within 1 week time. ? follow-up with EP #. Chronic medical conditions: HTN, HLD, DM2 insulin requiring, fatty liver disease Resume home meds as appropriate For DM2, on sliding scale, A1c of 7.5 in June 2021. DVT prophylaxis per Lovenox subcu Full code Text document was generated using drumbi voice recognition software. It may contain grammatical or spelling errors. Kindly contact undersigned for clarification of any documentation item in question. Admission and Anticipated Discharge Date Admission Date: August 15, 2021 Subjective Patient seen and examined at bedside. Patient sitting up in chair, on room air, NAD, had pacemaker placement today. Patient tolerating diet. Patient complaining of left breast soreness on his left upper chest at the site of pacemaker implantation. Patient denies headache/dizziness/chest pain/palpitation/other review of symptoms. Patient reports some dizziness prior to the procedure though. Physical Exam Physical Exam: GENERAL: Alert and oriented x3. NAD, on RA. HEENT: No pallor, no icterus. Pupils equal, round and reactive to light. Oral mucosa moist. NECK: No JVD, no neck masses. HEART: S1 and S2 heard. Regular rate and rhythm. No murmur, no gallop. RESPIRATORY SYSTEM: Normal AP diameter. No accessory muscle use. No wheezing, no crackles. ABDOMEN: Soft, bowel sounds present, nontender, no distention. CENTRAL NERVOUS SYSTEM: No facial droop. Speech is clear. Obeys simple commands. Moves extremities. EXTREMITIES: 1+ BLE edema, no erythema seen. Left upper chest with newly implanted pacemaker and clean dressing over it without soakage. No bruise noted. Results & Data Results & Data ([facility]) Vital Signs (Past 12 Hours) Vital Signs Temp Pulse Pulse Resp BP BP Pulse Ox 08/16/21 16:04 66 18 147/70 H 94 08/16/21 14:58 63 18 173/91 H 94 08/16/21 14:54 64 08/16/21 14:31 69 18 167/89 H 94 08/16/21 14:11 36.3 C L 67 18 177/87 H 92 08/16/21 11:15 63 18 171/81 H 94 08/16/21 10:55 36.6 C 64 18 172/81 H 96 08/16/21 08:44 53 L 08/16/21 07:44 36.7 C 65 18 160/88 H 93 (1) Syncope Syncope type: unspecified Qualified Code(s): R55 - Syncope and collapse
[2021-08-16] MEDS: carvediloL 3.125 MG TAB PO SCH (20:49)
[2021-08-16] MEDS: ATORVASTATIN 40 MG TAB PO SCH (20:49)
[2021-08-17] MEDS ORDERED: LOSARTAN POTASSIUM 50 MG TAB PO SCH (04:05)
[2021-08-17 07:11] LABS: BUN Creatinine Ratio 17.3 (10-20); Calcium 8.9 mg/dl (8.5-10.1); Creatinine Clr Calc Pharmacy 127.4 ml/min; Est GFR (African American) 108.8 ml/min; Est GFR (Non-African American) 93.8 ml/min; Magnesium 2.1 mg/dl (1.8-2.4); Potassium 4.4 mmol/L (3.5-5.1)
[2021-08-17 07:32] LABS: Babesia microti DNA Not Detected (Not Detected)
[2021-08-17] MEDS: CYANOCOBALAMIN 500 MCG TABLET (VITAMIN B-12) PO SCH (07:58)
[2021-08-17] MEDS: MULTIVITAMIN TAB PO SCH (07:59)
[2021-08-17] MEDS: ENOXAPARIN INJ 40 MG/0.4 ML SYR SQ SCH (07:59)
[2021-08-17] MEDS: ASPIRIN 81 MG ECTAB PO SCH (07:59)
[2021-08-17] MEDS: LORATADINE 10 MG TAB PO SCH (07:59)
[2021-08-17] MEDS: carvediloL 3.125 MG TAB PO SCH (07:59)
[2021-08-17] MEDS: AZELASTINE HCL 0.1% NASAL 200 SPRAYS/27,400 MCG BTL SCH (07:59)
[2021-08-17] MEDS: INSULIN GLARGINE SOLOSTAR 100 UNITS/ML 3 ML PEN SC SCH (08:00)
[2021-08-17] MEDS: FLUTICASONE PROPIONATE NA SPR 16 GM BTL SCH (08:00)
[2021-08-17] MEDS: INSULIN ASPART 100 UNITS/ML VIAL SC SCH ×2 (08:01→12:30)
[2021-08-17] MEDS ORDERED: hydroCHLOROthiazide 25 MG TAB PO SCH (09:00)
--- NOTE | 2021-08-17 09:46 | Cardiology Progress Note ---
Date of Service August 17, 2021 Assessment & Plan (1) Syncope: (2) AV block, Mobitz 1: (3) Bradycardia: (4) HTN (hypertension): (5) Dyslipidemia: (6) DM type 2 (diabetes mellitus, type 2): (7) Family history of ischemic heart disease: (8) Left carotid bruit: (9) Heart block AV third degree: Plan: 61-year-old male admitted for evaluation and treatment of dizziness spells, following an episode of Pelayo-Duran syncope. Evaluation revealed intermittent high degree heart block, symptomatic, without reversible cause. Patient status dual-chamber pacemaker implantation by Dr. Mckenzie on 08/16/2021. Device interrogation and PA and lateral chest x-ray ordered to be done this morning; if results are acceptably, OK for discharge. General post-pacemaker and would care measures advised. 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 [facility] contacted; they are making arrangements for standard follow-up. ASCVD. Diagnostic cardiac catheterization performed by Dr. Loza at [facility] on August 15, 2021 revealed severe branch vessel coronary artery disease with a 70 to 80% proximal stenosis in a small to medium caliber right PDA. No significant main vessel CAD observed. Elevated intracardiac filling pressures noted. Medical management recommended for the branch vessel CAD. Continue aspirin (dosage reduced to 81 mg/day). Continue high intensity statin therapy. Carvedilol 6.25 mg twice per day added post pacemaker implantation primarily for blood pressure management. Nitrates contraindicated given sildenafil use. Aggre ssive diabetic management recommended. Hypertension. HCTZ decreased to 25 mg/day this admission. Carvedilol 6.25 mg twice a day added this admission. If blood pressure remains elevated on follow- up, would consider the addition of amlodipine next. Dyslipidemia. Continue atorvastatin at 80 mg/day. Left carotid bruit. Carotid duplex on August 15, 2021 revealed mild to moderate atherosclerotic plaque without evidence for hemodynamically significant stenosis. Continue aspirin. Continue high intensity statin therapy. Follow routinely. Type 2 diabetes mellitus. As per hospitalist and PCP. Family history of ischemic heart disease. Continue risk factor and lifestyle modification as detailed above. Admission and Anticipated Discharge Date Admission Date: August 15, 2021 Supervising Physician Attestation: I have personally performed a history and physical examination on the patient. I agree with the physician staff assistant's findings and plan as documented with the following additions. Subjective: No subjective complaints. Feeling well. Blood pressure trending down Exam: Left infraclavicular pocket clean dry intact Data: Chest x-ray performed this morning reviewed independently, no pneumothorax, leads placed appropriately Assessment and Plan: Problem list as noted in Mr Ayala's note. Discussed with patient rationale of reducing his outpatient dose of aspirin 325 mg to 81 mg given his history of CAD, in order to reduce bleeding risk. 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 -Stable for discharge to home from cardiology standpoint. Estrada Kang, Subjective Patient seen and examined. Chart, medications, and telemetry reviewed. Status post left subclavian dual chamber permanent pacemaker implantation on 08/16/[address] Mckenzie. Device interrogation and PA/lateral chest x-ray this AM are pending. Feels OK. + Incisional pain. No fevers. No chills. No pleuritic pain. No shortness of breath. No cough. No orthopnea. No palpitations. No dizziness. Review of Systems Review of Systems: Complete review of systems is otherwise as stated above, negative, or noncontributory. Physical Exam Physical Exam: General: A&Ox3. NAD. HENT: Normocephalic. Atraumatic. Eyes: PER. Conjunctiva pink, sclera clear. Neck: Left carotid bruit. No JVD. No HJR. Heart: Distant heart sounds. RRR.Grade II/ systolic ejection murmur. No diastolic murmur. No rub. No gallop. PMI is nondisplaced. Lungs: Clear to auscultation. Abdomen: +BS. Soft. Nontender. No masses or organomegaly. Extremities: No clubbing, cyanosis, or edema. Right radial access site looks good. Left subclavian pace Limited neurological examination is without focal deficits. Pulses: radial=2/4, posterior tibial=2/4 on the right, 1/4 on the left Results & Data ([facility]) Vital Signs (Past 12 Hours) Vital Signs Temp Pulse Pulse Resp BP BP Pulse Ox 08/17/21 07:48 36.9 C 64 18 167/70 H 96 08/17/21 03:52 36.4 C L 60 18 176/92 H 95 08/17/21 00:31 62 08/16/21 23:22 36.9 C 62 18 144/71 H 95 08/16/21 23:00 08/16/21 22:47 60 Pulse Ox 08/17/21 07:48 08/17/21 03:52 08/17/21 00:31 08/16/21 23:22 08/16/21 23:00 93 08/16/21 22:47 Diagnostic Findings Telemetry: Ventricular paced in the 60's.
[2021-08-17] MEDS ORDERED: carvediloL 3.125 MG TAB PO ONE (10:00)
--- NOTE | 2021-08-17 10:31 | XRay Report ---
XR chest 2V PA/lateral HISTORY: 61 years-old Male follow up , post pacer status post placement of a left subclavian pacer COMPARISON: Chest radiograph 08/16/2021 TECHNIQUE: PA and lateral views of the chest FINDINGS: Status post placement of a left subclavian pacer. Leads appear intact. No postprocedural pneumothorax . The cardiac mediastinal and hilar silhouettes are within normal limits. No pleural effusion, overt pulmonary edema or lobar airspace consolidation. Degenerative changes of the shoulders and spine. Sears ited lateral view secondary to upper extremity positioning. IMPRESSION: Status post placement of a left subclavian pacer. No postprocedural pneumothorax. ACT 112: Negative or not required by law. The above report was generated using voice recognition software. It may contain grammatical, syntax o r spelling errors. Electronically signed by: Deion Regan M.D. 08/17/2021 10:30 AM
--- NOTE | 2021-08-17 10:56 | Communication Note ---
Date of Service: August 17, 2021 at 10:57 AM PA and lateral chest x-ray looks good Device interrogated by [employer] this morning looks good. Work excuse created in Epic to be off work until September 23, 2021 Follow-up appointments are being arranged. Please contact with any questions or concern.
--- NOTE | 2021-08-17 12:58 | Discharge Summary ---
Date of Service August 17, 2021 Admission HPI Per Admitting Provider History obtained from patient and records. Medical history significant for hypertension, hyperlipidemia, LUX on CPAP, DM2 insulin requiring, fatty liver disease. Last confinement May 2017 under Orthopedics service for elective left knee surgery. 3 weeks history of dizziness described as lightheadedness/near syncopal events, intermittent symptoms, usually noted on motion, standing up. Patient denies chest pain, S OB, headache. 3 days ago, patient noted tunnel vision prior to blacking out for a few moments for a few moments after reaching for a pot of soup on the floor. Denies head trauma. Achy flank pain post syncopal event. No tongue biting, no incontinence symptoms. Patient seen at urgent care center today. EKG showed sinus rhythm with first-degree AV block as per documentation. Patient directed to ER for evaluation. 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 Admission Exam Per Admitting Provider GENERAL: Comfortable, morbidly obese, pleasant, no respiratory distress SKIN: Normal color, warm HEENT: Alopecia, pink palpebral conjunctivae, no ptosis, moist buccal mucosa NECK : Supple, short neck, no tenderness CHEST : CTA, no tenderness HEART : RRR, no obvious murmurs ABDOMEN: Some distention, nontender EXTREMITIES : Minimal LE swelling, no LE tenderness, no other conspicuous deformities noted NEUROLOGIC : Coherent, no facial asymmetry, no other gross focality Principal Diagnosis Syncope likely secondary to intermittent complete heart block Discharge Exam GENERAL: Alert and oriented x3. NAD, on RA. HEENT: No pallor, no icterus. Pupils equal, round and reactive to light. Oral mucosa moist. NECK: No JVD, no neck masses. HEART: S1 and S2 heard. Regular rate and rhythm. No murmur, no gallop. RESPIRATORY SYSTEM: Normal AP diameter. No accessory muscle use. No wheezing, no crackles. ABDOMEN: Soft, bowel sounds present, nontender, no distention. CENTRAL NERVOUS SYSTEM: No facial droop. Speech is clear. Obeys simple c ommands. Moves extremities. EXTREMITIES: 1+ BLE edema, no erythema seen. Left upper chest with newly implanted pacemaker and clean dressing over it without soakage. No bruise noted. Discharge Data Allergies Allergy/AdvReac Type Severity Reaction Status Date / Time No Known Allergies Allergy Unknown NKA Verified 08/14/21 20:07 Consultations 08/14/21 19:30 ED Decision to Admit Stat 08/14/21 23:42 Consult Cardiology Routine Procedures Performed Operation Date: 08/15/21 16:00 Actual Procedures s Cineradiography w/Routine Exam - Cody Loza MD p Cath, Left with Cors and Vent - Cody Loza MD Operation Date: 08/16/21 11:00 Actual Procedures p Pacer with A/V Leads (Dual) - Priti Mckenzie DO Ordered Studies 08/14/21 20:16 CT abd pelvis wo con Urgent 08/15/21 10:50 US carotid doppler BI Routine 08/15/21 16:01 CL Cath Imgs for PACS use only Routine 08/16/21 06:54 CL Cath Imgs for PACS use only Routine 08/16/21 12:00 EP Lab Images for PACS ONCE Hospital Course (1) Syncope: 61-year-old gentleman with PMH of LUX on CPAP, DM 2 insulin requiring, HTN, HLD, obesity and fatty liver disease presented 08/14 to our ED with complaint of syncope. 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 He did not hit his head. During that event, he felt very hot but denies any arrhythmia/sweating/seizure/other abnormal activities -tongue biting, postictal confusion. He was managed for the following: #. Syncope #. Intermittent complete heart block Patient had blacked out for a few moments on 08/11 INFORMATION SECURITY CONSULTANT Patient was seen at urgent care on the day of arrival where EKG showed sinus rhythm with first-degree AV block as per documentation Patient admitted to telemetry, cardiology consulted Orthostatic vitals negative EKG at presentation: Sinus rhythm with second-degree AV block Upon discussion with cardiology consult for intermittent third-degree heart block Syncope likely secondary to intermittent complete heart block. 08/15 ECHO: Ejection fraction 55 to 60%, left ventricular wall motion normal, left ventricular systolic function normal, grade II diastolic dysfunction. 08/15 cardiac cath: 70 to 80% proximal stenosis and a small to medium caliber right PDA, no significant mid vessel CAD. 08/16 status post pacer with AV leads [dual] Cardiology on board: Evaluated and changed medications. HCTZ reduced to 25 mg daily, aspirin reduced to 81 mg daily, added carvedilol 6.25 mg twice a day. Patient reports improvement in his dizziness, no new events and patient is feeling better on the day of discharge. #. Chronic medical conditions: HTN, HLD, DM2 insulin requiring, fatty liver disease Resume home meds as appropriate For DM2, on sliding scale, A1c of 7.5 in June 2021. DVT prophylaxis per Lovenox subcu Full code Following instructions were communicated at the point of discharge: Follow-up with your primary care physician within a week time. Follow-up with cardiology in 1 week time. Do not lift your left elbow above your left shoulder for a month. Cardiology has evaluated and changed medications while inpatient. Take me dications as prescribed. Discontinue herbals and supplements. Get your blood work CBC and BMP done in a week time and have the results forwarded to PCP. Total Time Total Time Spent Total Time Spent (In Minutes): 45 Discharge Plan Discharge Items Patient Disposition: Home - Self-Care Reason For Visit: SYNCOPE Discharge Diagnosis: intermittent complete heart block Activity: Per Instructions section Activity Comment: do not lift the left elbow over the left shoulder for 1 month Lifting: No more than 10 pounds Lifting Comment: do not lift more than 10 pounds with the left arm for 2 weeks Bathing: Keep incision dry Bathing Comment: keep dressing on & dry until wound check next week Sexual Activity: After two weeks Non-emergency contact: Thermodynamic Physicist Call non-emergency contact if: you have any medication questions, your symptoms worsen and your rectal temperature is above 100.4 Follow-up/Referrals: [facility] [Other] (Date & Time 08/25/2021 8:30 AM Provider [facility] Department Cardiology, [facility] ) Yajaira Finnegan DO [Primary Care Provider] - (Date & Time 08/22/2021 11:00 AM Provider Sawyer Richey MD Department Family Practice, [place] ) Diet: Carb Consistent or DM2 and Heart Healthy Addtl Attending Provider Instructions: Follow-up with your primary care physician within a week time. Follow-up with cardiology in 1 week time. Do not lift your left elbow above your left shoulder for a month. Cardiology has evaluated and changed medications while inpatient. Take medications as prescribed. Discontinue herbals and supplements. Get your blood work CBC and BMP done in a week time and have the results forwarded to PCP. Addtl Endoscopy Technician Provider Instructions: Send a remote check from your device tomorrow morning 08/17/2021 when you wake up Device and wound check next week [facility] Cardiology Pending Studies at Discharge: No Stand-Alone Forms: My [facility] [employer], Smoking Cessation Medications and DC Order Prescriptions: New carvedilol 6.25 mg Tablet 6.25 mg PO BID Qty: 60 RF: 0 aspirin 81 mg Tablet,Delayed Release (Dr/Ec) 81 mg PO QAM Qty: 30 RF: 0 hydrochlorothiazide 25 mg Tablet 25 mg PO QAM Qty: 30 RF: 0 Continued Rochert 3 Capsule 1,500 mg PO HS Qty: 0 RF: 0 GLUCOSAMINE-VITAMIN D (GLUCOSAMINE PLUS VITAMIN) 1 TAB tablet 1 tabs PO BID Qty: 0 RF: 0 chromium picolinate 200 mcg Tablet 200 mcg PO QAM Qty: 0 RF: 0 fluticasone propionate [Flonase] 50 mcg/actuation Victoria,Suspension 2 spray INTRANASAL BID Qty: 0 RF: 0 Humalog KwikPen Insulin 200 unit/mL (3 mL) Insulin Pen 150 unit SUBCUT ACHS Qty: 0 RF: 0 multivitamin Tablet 1 tab PO PM RF: 0 zinc 100 mg Tablet 100 mg PO PM RF: 0 atorvastatin 80 mg tablet 80 mg PO PM RF: 0 cyanocobalamin (vitamin B-12) [Vitamin B-12] 1,000 mcg Tablet 1,000 mcg PO QAM RF: 0 sildenafil [Viagra] 100 mg Tablet 100 mg PO DIRECTED MDD 1 dose/24h PRN (Reason: Erectile Dysfunction) RF: 0 metformin 1,000 mg tablet 1,000 mg PO BIDM RF: 0 azelastine 137 mcg (0.1 %) aerosol,spray 2 spray INTRANASAL BID RF: 0 albuterol sulfate [ProAir HFA] 90 mcg/actuation Hfa Aerosol Inhaler 2 puff INHALATION Q4H PRN (Reason: cough/ sob) RF: 0 losartan 100 mg tablet 100 mg PO QAM RF: 0 ipratropium bromide 21 mcg (0.03 %) spray,non-aerosol 2 spray INTRANASAL TID PRN (Reason: Runny Nose) RF: 0 loratadine 10 mg Tablet 10 mg PO QAM RF: 0 Lantus Solostar U-100 Insulin 100 unit/mL (3 mL) insulin pen 65 - 70 unit SUBCUT AMPM RF: 0 cholecalciferol (vitamin D3) 50 mcg (2,000 unit) Capsule 50 mcg PO PM RF: 0 Jardiance 25 mg tablet 25 mg PO QAM RF: 0 hydrocodone bitartrate 40 mg Tablet,Oral Only,Ext.Rel.24 Hr 0 mg PO ONCE RF: 0 Trulicity 1.5 mg/0.5 mL pen injector 1.5 mg SUBCUT WK RF: 0 Changed potassium citrate 10 mEq (1,080 mg) tablet extended release 20 meq PO BID Qty: 0 RF: 0 Discontinued milk thistle 500 mg Capsule 500 mg PO QAM Qty: 0 RF: 0 cinnamon bark [Cinnamon] 500 mg Capsule 1,000 mg PO BID Qty: 0 RF: 0 GYMNEMA SYLVESTRIS LEAF (BULK) (GYMNEMA SYLVESTRIS LEAF) 1 POW POW 400 mg PO BID Qty: 0 RF: 0 garlic 1,000 mg Capsule 1,000 mg PO HS Qty: 0 RF: 0 hawthorn berrios 565 mg Capsule 565 mg PO BID Qty: 0 RF: 0 prasterone (dhea) 50 mg Tablet 50 mg PO PM Qty: 0 RF: 0 GINSENG (LITHUANIAN PANAX GINSENG) 100 MG capsule 100 mg PO BID Qty: 0 RF: 0 ascorbic acid (vitamin C) [Vitamin C] 1,000 mg Tablet 1 g PO HS Qty: 0 RF: 0 hydrochlorothiazide 50 mg Tablet 50 mg PO QAM Qty: 0 RF: 0 vitamin E 400 unit Capsule 400 unit PO BID Qty: 0 RF: 0 ginkgo biloba 500 mg Capsule 0 mg PO QAM Qty: 0 RF: 0 aspirin 325 mg Tablet 325 mg PO PM RF: 0 turmeric 400 mg Capsule 400 mg PO QDL RF: 0 ashwagandha root extract 300 mg Capsule 300 mg PO QAM RF: 0 Discharge Orders: Discharge Order (Routine); Ordered 08/17/21 Ordered By: Chas Mobley Admission Data Admit Date/Time: 08/15/21 13:49 Attending Provider: Chas Mobley Admit Provider: Wei Cerna Primary Care Provider: Yajaira Finnegan Other Providers: Wei Cerna ; Gómez Murray ; Estrada Kang ; Johnathon Flynn ; Edwin Finnegan ; Israel Cloud ; Harjeet Ayala ; Romina Lozano ; Priti Mckenzie ; Leann Recinos. ; Braeden Woodward
[2021-08-17] MEDS ORDERED: carvediloL 6.25 MG TAB PO SCH (21:00)
--- NOTE | 2021-08-30 14:03 | Operative Report (OR) ---
DATE OF PROCEDURE: 08/16/2021 PREOPERATIVE DIAGNOSES: Syncope and intermittent complete heart block. POSTOPERATIVE DIAGNOSES: Syncope and intermittent complete heart block. PROCEDURE: Dual-chamber rate responsive permanent pacemaker under fluoroscopic guidance along with p eripheral venogram. SURGEON: Priti Mckenzie DO. HOT BRAIDER: None. ANESTHESIA: Monitored conscious sedation administered under my supervision by Argenis Edmond. Start maikel e 1204, end time 1350. Total of 6 mg of Versed, 125 mcg of fentanyl. INTRAVENOUS FLUIDS: 118 mL. ANTIBIOTICS: 3 grams of Ancef. CONTRAST: 20 mL. BLOOD LOSS: 30 mL. URINE OUTPUT: Not applicable. SPECIMENS: None. FINDINGS: See below. DRAINS: None. COMPLICATIONS: None. INDICATIONS: This is a 61-year-old gentleman who has a past medical history for syncope secondary to intermittent complete heart block, coronary artery disease, status post cath on 08/15/2021 where he had just branch disease with small vessel of the right PDA 70%-80%, hypertension, hyperlipidemia, ajit betes, left carotid artery stenosis, family history of coronary artery disease. The patient was adm itted due to syncope, found to have intermittent complete heart block and ruled out for any acute cor onary disease, so he was recommended a pacemaker prior to discharge. CONSENT: Consent was obtained prior to the patient going into the electrophysiology lab. The patien t was informed of the risks, benefits, and alternatives to the procedure. Risks include, but are not limited to, sudden cardiac , cardiac arrhythmia, cerebrovascular accident, myocardial infarctio n, injury to blood vessels, chamber of the heart and lung, bleeding and infection. The patient under stood these risks and agreed to the procedure as planned. Informed consent was obtained. DESCRIPTION OF PROCEDURE: The patient was brought into electrophysiology lab in a fasting state. He was connected to continuous science writer. Timeout was performed to ensure the patient's identity and the procedure correctly. He was prepped and draped over the left infraclavicular space in scott l surgical standard fashion. Monitored conscious sedation was given throughout the procedure for pat ient's comfort level. [place] precautions were maintained throughout the procedure. 10 mL of 1% lidocaine-bupivacaine mixture were given in the left deltopectoral groove. Incision was made in the left deltopectoral groove. Blunt dissection was performed down to the pectoralis muscle, then a peripheral venogram was performed to identify the axillary vein. Venous axillary access was obtained through a needlestick without any complications. The guidewire was inserted without any res istance. The 7-[place] sheath was inserted over the guidewire without any resistance. Dilator was re moved and a second guidewire was inserted through the sheath to allow for retained venous access. Sh eath was removed. Then, a new 7-[place] sheath was inserted over one of the guidewires, the guidewire and dilator were r emoved and a His C315 sheath was advanced over a Glidewire through the 7-[place]an sheath into the right ventricle. Then, the Glidewire and dilator were removed and the left bundle lead was advanced throu gh the sheath and intracardiac electrogram His bundle recordings were attempted, but I never saw a cl ear His, but I kind of had an idea based on my A:V ratios of where the His region was, so then I move d the camera in JEFFERS 30 and kind of marked where this was with my catheter and then came down about 2 cm from this in a line that would extend out to the apex and then came on pacing to see where I had t he best W form pace pattern in V1. Once I found a place that I felt was acceptable, I put the camera in BULGARIAN 30, started giving clockwis e turns pausing once in a while to screwing in the lead into the septum to see how my pace complex lo oked, a few times it was not advancing. I ultimately had to reposition it in numerous times and had to go through a total of 3 of the His C315 sheaths. Ultimately, we found an acceptable spot, I got a little bit of an R prime. I gave contrast through the sheath to see how I was well into the septum w ith the lead. Then, I slit the sheath away under fluoroscopic guidance. I left the 7-[place]enezuel[place] sheath around the left bundle while I positioned the right atrial lead. The second 7-[place]enezuelan sheath was advanced over the retained guidewire, the guidewire and dilator remove d. The right atrial lead was advanced into right atrium, positioned ultimately into the right atrial appendage. Again, I had to reposition this a few times, I tried with the willis precurved J stylet, b ut ultimately got it with the blue. There was adequate pacing and sensing thresholds and no diaphrag matic stimulation with high output pacing. The 7-[place]an sheath was peeled away and the lead was fixa sohail to pectoralis muscle using 0 silk suture. The 7-[place] sheath around the left bundle lead was then peeled away and the lead was fixated to pect oralis muscle using 0 silk suture. A pacemaker pocket was performed using blunt dissection over the pectoralis muscle within the pectoral fascia. Then, it was flushed with copious amounts of vancomyci n and saline wash and inspected for hemostasis. Then, the leads were attached to the pulse generator making sure the pins were in appropriate position, passed set screws, and set screws were all tighte delphine. Then, the pulse generator was placed in the TYRX pouch followed then by being placed in the poc ket, making sure the leads were lying flat beneath the device. The incision was closed in a 3-layer fashion using 2-0 Vicryl interrupted suture followed by 3-0 Vicryl interrupted suture, followed by 4- 0 Monocryl running stitch. Dermabond was applied followed by Telfa and Tegaderm dressing. EQUIPMENT: 1. Generator is a [employer] XT DR SANDY Guadaulpe [id number], serial number [id number]. 2. TYRX pouch, reference [id number], lot number [id number]. 3. Right atrial lead, Medtronic 5076-52 cm, serial number [id number]. 4. Left bundle lead, Medtronic 3830-69 cm, serial number [id number]. INTRAOPERATIVE TESTIN. Right atrial lead, P waves 2.3 millivolts, impedance 546 ohms, threshold 0.8 volts at 0.5 millise conds. 2. Left bundle lead, R waves 12 millivolts, impedance 1002 ohms, threshold 0.7 volts at 0.5 millisec onds. FINAL MEASUREMENTS THROUGH THE DEVICE: 1. Right atrial lead, P waves 3.8 millivolts, impedance 532 ohms, threshold 1 volt at 0.4 millisecon ds. 2. Left bundle lead, R waves 13.9 millivolts, impedance 779 ohms, threshold 0.5 volts at 0.4 millise conds. FINAL PARAMETERS: DDD 60/150. Right atrial amplitude 3.5 volts, pulse width 0.4 milliseconds, sensi tivity 0.3 millivolts. Left bundle lead amplitude 3.5 volts, pulse width 0.4 milliseconds, sensitivi ty 0.9 millivolts. IMPRESSION: Successful implantation of a dual chamber rate responsive permanent pacemaker under fluo roscopic guidance with a peripheral venogram secondary to syncope and intermittent complete heart blo ck. PLAN: Monitor the patient overnight, 12-lead ECG, chest x-ray. He cannot lift the left elbow or lef t shoulder for 1 month. He cannot lift more than 10 pounds with the left arm for 2 weeks. He is to keep the dressing on and dry until his wound check next week and I would restart beta blockers. Job ID: [id number]
== END 2021-08-17 17:08 | disposition home or self-care (01) | DRG 243 ==
LOC: ED 15:56 → 2S 15:56